=== PATIENT | male | born 1970 | race Caucasian/White ===

== ENCOUNTER 2021-05-19 15:14 | Emergency (ER) | payer MEDICAID, SELFPAY ==
--- NOTE | ~2021-05-19 | CT_ITS ---
EXAMINATION: CT CHEST WITHOUT CONTRAST CLINICAL INFORMATION: Indication: Trauma with super supraclavicular bulging COMPARISON: None TECHNIQUE: Multidetector volumetric CT imaging of the chest was done. Axial MIP volume rendering provided. Sagittal and coronal reformatted images were obtained. This CT examination was performed using dose optimization techniques as appropriate, variously including the following: *Automated exposure control *Adjustment of mA and/or kV according to patient size (this includes techniques or standardized protocols for targeted exams where dose is matched to indication/reason for exam; i.e. extremities or head) *Use of iterative reconstruction technique DLP: 349 mGy-cm FINDINGS: The thoracic inlet is within normal limits. Note is made of a retroesophageal right clavian artery There is mildly prominent mediastinal adenopathy. No bulky adenopathy. Largest node appears to measure 8 mm short axis in the AP window. Partially visualized upper abdominal structures are grossly within normal limits. Imaging the lung maria. Right lung; 3 mm nodule on image 22. No pneumothorax or effusion. 3 mm pleural-based nodule on image 51 at the right base. Another small 3 mm nodule on image 52 adjacent to the hemidiaphragm. 3 mm nodule on image 43. Left lung; No evidence of pneumothorax or effusion. No significant rate. Some likely chronic change occurring in the lingula.. Underlying nodule cannot be excluded. Area measures 9 mm. Minimal groundglass change left midlung posterior may be mild infiltrate. Measures 3.7 x 1.3 cm. Attention to follow-up. This could represent a focal infiltrate but follow-up would be recommended to continue assessment Review of the bone windows demonstrates a step-off involving the anterior third rib. This could be an old fracture but an acute fracture cannot be excluded. This is on the left. There is no convincing evidence for a soft tissue hematoma. Muscular structures appear symmetrical in the pectoralis region CT/CT chest wo con IMPRESSION: No evidence for a significant hematoma here. There is a step-off involving the anterior third rib on the left which could represent an acute fracture versus chronic injury. Point palpation recommended. In the underlying lung there are some prominent mediastinal nodes and some scattered areas of lung nodularity and groundglass change which are described above. I'm recommending a low-dose noncontrast study in 3 months for continued evaluation
--- NOTE | ~2021-05-19 | CT_ITS ---
EXAMINATION: CT SOFT TISSUE NECK WITHOUT CONTRAST CLINICAL INFORMATION: Fall. Supraclavicular bulging. COMPARISON: CT chest from 05/19/2021. TECHNIQUE: Helical imaging was performed in the axial plane with generation of coronal and sagittal reformatted images. This CT examination was performed using dose optimization techniques as appropriate, variously including the following: *Automated exposure control *Adjustment of mA and/or kV according to patient size (this includes techniques or standardized protocols for targeted exams where dose is matched to indication/reason for exam; i.e. extremities or head) *Use of iterative reconstruction technique DLP: 1007 mGy-cm FINDINGS: No significant cutaneous thickening or subcutaneous inflammation. No discrete fluid collection within the deep tissues of the neck. The premaxillary, retromaxillary, pterygopalatine fossa, orbital apical, parapharyngeal, and prelaryngeal adipose tissue is maintained. Normal appearance of the parotid, submandibular, and thyroid glands. Scattered subcentimeter lymph nodes bilaterally, none of which are pathologically enlarged. No demonstrated focal lesions within the intrinsic tissues of the tongue or floor of mouth. Normal mucosal contours of the pharynx and larynx. Normal appearance of the hyoid bone, thyroid cartilage, or cartilaginous trachea. The airways remains widely patent. No radiopaque foreign bodies. The aortic arch is of normal contour and caliber. Aberrant right subclavian artery coursing posterior to the esophagus. The atlantooccipital and atlantoaxial articulations remain well aligned. There is anatomic alignment of the vertebral bodies and posterior elements. No evidence of acute fracture or subluxation of the cervical spine. The vertebral body heights are maintained. Mild degenerative disc disease from C4-T1. There is no prevertebral soft tissue swelling. The visualized portion of the skull base is without significant abnormalities. Mild mucosal thickening of the paranasal sinuses. Mild rightward nasal septal deviation. The mastoid air cells and middle ear cavities are clear. Mild periapical lucencies associated with the maxillary molars. CT Upper Chest: The visualized lung apices and upper mediastinum are within normal limits. CT/CT soft tissue neck wo con IMPRESSION: No demonstrated focal lesion, collection, or lymphadenopathy within the cervical soft tissues. No demonstrated acute fracture or traumatic subluxation of the cervical spine.
--- NOTE | ~2021-05-19 | XR_ITS ---
EXAMINATION: LEFT SHOULDER AND LEFT CLAVICLE CLINICAL INFORMATION: Injury COMPARISON: None TECHNIQUE: Two-view left clavicle and 4 view left shoulder FINDINGS: There is no evidence of acute fracture of the left clavicle. The acromioclavicular joint appears unremarkable. There is minimal fat stranding seen superior to the acromioclavicular joint without widening of the coracoclavicular space. There is no evidence of acute fracture or dislocation of the left shoulder. No calcific tendinitis identified. Glenohumeral joint unremarkable. XR/XR clavicle LT IMPRESSION: No significant bony abnormality of the left clavicle or shoulder.
--- NOTE | ~2021-05-19 | XR_ITS ---
EXAMINATION: LEFT SHOULDER AND LEFT CLAVICLE CLINICAL INFORMATION: Injury COMPARISON: None TECHNIQUE: Two-view left clavicle and 4 view left shoulder FINDINGS: There is no evidence of acute fracture of the left clavicle. The acromioclavicular joint appears unremarkable. There is minimal fat stranding seen superior to the acromioclavicular joint without widening of the coracoclavicular space. There is no evidence of acute fracture or dislocation of the left shoulder. No calcific tendinitis identified. Glenohumeral joint unremarkable. XR/XR shoulder LT min 2V IMPRESSION: No significant bony abnormality of the left clavicle or shoulder.
[2021-05-19 15:46] VITALS: BP 153/91; PULSE 69; RESP 18; TEMP 36.5; O2SAT 98; BMI 32.3
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
[2021-05-19 17:52] VITALS: BP 126/83; PULSE 60; RESP 17; TEMP 36.4; O2SAT 97
--- NOTE | 2021-05-19 20:43 | PC.NURSE ---
Pt. chavez from ED. MD went to check on patient and patient unable to be found. Bathrooms checked and patient has not returned to bed.
== END 2021-05-19 20:48 | disposition left against medical advice (07) ==
PROVIDERS: Emergency Provider Emergency Medicine
DX: S29.9XXA Unspecified injury of thorax, initial encounter (principal); M25.512 Pain in left shoulder; V18.0XXA Pedal cycle driver injured in noncollision transport accident in nontraffic accident, initial encounter; Y93.55 Activity, bike riding; Y92.9 Unspecified place or not applicable; Y99.9 Unspecified external cause status
CPT/HCPCS: 70490; 71250; 73000; 73030; 99284

== ENCOUNTER 2021-10-23 20:37 | Emergency (ER) | payer MEDICAID, SELFPAY ==
--- NOTE | ~2021-10-23 | XR_ITS ---
EXAMINATION: XR HAND, LEFT CLINICAL INFORMATION: Left hand injury. COMPARISON: None TECHNIQUE: PA, lateral, and oblique views of the left hand. FINDINGS: Soft tissue injury is evident at the dorsomedial aspect of the hand in the region of the fifth MCP joints. No acute osseous findings. Bone mineralization is normal. No radiodense foreign bodies. Joint spaces are normal. XR/XR hand LT 2V IMPRESSION: Soft tissue injury at the dorsomedial aspect of the hand. No fractures.
[2021-10-23 20:45] VITALS: BP 143/84; PULSE 77; RESP 18; TEMP 36.8; O2SAT 96; BMI 31.5
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
[2021-10-23] MEDS: Diphth,Pertus(ACell),Tet Adult 0.5 ML SYRINGE IM (23:49)
== END 2021-10-24 00:40 | disposition home or self-care (01) ==
PROVIDERS: Emergency Provider Internal Medicine
DX: S61.412A Laceration without foreign body of left hand, initial encounter (principal); S60.512A Abrasion of left hand, initial encounter; W25.XXXA Contact with sharp glass, initial encounter; Y93.9 Activity, unspecified; Y92.009 Unspecified place in unspecified non-institutional (private) residence as the place of occurrence of the external cause; Y99.9 Unspecified external cause status
CPT/HCPCS: 12002; 73120; 90471; 90715; 99284

== ENCOUNTER 2022-09-21 11:30 | Outpatient (REF) | payer MEDICAID, SELFPAY ==
--- NOTE | ~2022-09-21 | US_ITS ---
EXAMINATION: US ABDOMEN COMPLETE CLINICAL INFORMATION: Elevated liver enzymes. COMPARISON: None available. TECHNIQUE: Real-time imaging of the abdominal viscera. FINDINGS: PANCREAS: The head and body the pancreas are normal. The tail visualized due to bowel gas. ABDOMINAL AORTA: The distal abdominal aorta are not well visualized due to bowel gas. The proximal aorta is normal in caliber. INFERIOR VENA CAVA: Visualized portions are normal. LIVER: Echogenic liver. The liver is large. The liver contour is normal. No focal hepatic lesion. There is no intrahepatic biliary duct dilatation seen. GALLBLADDER: Gallbladder is normal in size. The gallbladder wall is thickened measuring up to 8 mm. No gallstones. COMMON BILE DUCT: Normal in caliber measuring 0.6 cm in diameter. RIGHT KIDNEY: Small 3 mm stone in the midpole. No hydronephrosis or focal parenchymal lesions. The kidney measures 10.9 cm in maximum dimension. LEFT KIDNEY: Normal. No hydronephrosis. No renal calculi or focal parenchymal lesions. The kidney measures 10.2 cm in maximum dimension. SPLEEN: Normal. The spleen measures 11.6 cm in maximum dimension. FREE FLUID: None. US/US abdomen complete IMPRESSION: Enlarged echogenic liver. Differential would include fatty infiltration and liver disease. Thickened gallbladder wall. Differential would include cholangitis, low albumin, gallbladder wall changes related to liver disease, and acalculus cholecystitis. Clinical correlation recommended. Small right renal stone. Limited visualization of the pancreas and aorta.
== END 2022-09-21 11:31 | disposition home or self-care (01) ==
LOC: HO.US 11:30
PROVIDERS: PCP Nurse Practitioner Primary Care; Visit Provider Family Medicine
DX: R74.8 Abnormal levels of other serum enzymes (principal)
CPT/HCPCS: 76700

== ENCOUNTER 2023-01-17 22:49 | Emergency (ER) | payer MEDICAID, SELFPAY ==
[2023-01-17 23:00] VITALS: BP 111/74; BP 145/82; PULSE 74; PULSE 80; RESP 18; TEMP 36.7; O2SAT 94; O2SAT 95; BMI 28.3
--- NOTE | 2023-01-18 00:01 | ED.GENADULT ---
HPI - General Adult General Chief complaint: Allergic Reaction Stated complaint: bee sting 4days ago Time Seen by Provider: 01/17/23 23:51 Source: patient Mode of arrival: ambulatory Limitations: no limitations History of Present Illness HPI narrative: 52-year-old male presents with left arm swelling. Patient noted bee sting approximately 5-6 days ago. Since then he has had progressive swelling and pain and discomfort to the left upper extremity. Patient describes symptoms as severe. There is no clear relieving or exacerbating features. Prior treatment included oral steroids with no improvement. Patient denies any difficulty breathing, throat or tongue swelling, difficulty swallowing. Related Data Previous Rx's Medication Instructions Recorded naproxen 500 mg tablet (Naprosyn) 500 mg PO BID #14 tabs 01/17/23 sulfamethoxazole 800 1 tab PO BID #14 tabs 01/17/23 mg-trimethoprim 160 mg tablet (Bactrim DS) Allergies Allergy/AdvReac Type Severity Reaction Status Date / Time bee pollen [bee stings] Allergy Anaphylaxis Verified 01/17/23 23:07 Review of Systems Review of Systems: CONSTITUTIONAL: Denies weight loss, fever and chills. HEENT: Denies changes in vision and hearing. RESPIRATORY: Denies SOB and cough. CV: Denies palpitations no CP. GI: Denies abdominal pain, nausea, vomiting and diarrhea. : Denies dysuria and urinary frequency. MSK: Denies myalgia and joint pain. SKIN: Denies rash and pruritus. NEUROLOGICAL: Denies headache and syncope. PSYCHIATRIC: Denies recent changes in mood. Denies anxiety and depression. All other ROS are negative unless in HPI PENDING SALE TO [facility] Social History Social History Alcohol intake: unknown Patient Tobacco Use Status: Tobacco use Unknown Advance Directives: No Advance Directives Information Provided: Yes Physical Exam ED Vital Signs: Vital Signs - 24 hr 01/17/23 23:00 Temperature 98.0 F Pulse Rate 80 Respiratory Rate 18 Blood Pressure 111/74 Pulse Oximetry 94 Oxygen Delivery Method Room Air BMI result Body Mass Index 28.3 GEN: Well developed, no acute distress, alert, oriented HEENT: Normocephalic, atraumatic, normal external ears, nose appears normal, no oropharyngeal edema or exudates Eyes: Normal to appearance Neck: Supple, no lymphadenopathy Respiratory: Talks in complete sentences, no respiratory distress, clear to auscultation bilaterally Cardiovascular: Regular rate and rhythm, no murmurs rubs or gallops Abdomen: Soft, nontender, nondistended, no guarding, no rebound Back: No CVA tenderness Extremities: No clubbing cyanosis or edema Neurologic: No focal neurologic deficits, cranial nerves 2-12 intact, strength is 5/5 bilaterally Skin: No rash or erythematous changes to volar aspect of forearm, possible stinger in place in the distal forearm Medical Decision Making Medical Decision Making MDM Narrative: 52-year-old male presents with swelling and pain to the left forearm after bee sting several days ago. He is currently on steroids but despite this, he is having progressive swelling. He is neurovascular intact. I removed the stinger during the physical examination. Differential diagnosis most likely clues inflammatory changes due to bee sting and less likely cellulitis. However, given the duration of symptoms and progression, we will go ahead and start oral antibiotics. Patient to continue steroids. There are no systemic symptoms that warrant other intervention at this time Differential Diagnosis Differential Diagnoses: The differential diagnosis associated with the presentation includes (See above) Prescription Management I considered prescription management with: Antibiotic Discharge Plan Discharge Clinical Impression: Bee sting, Cellulitis Instructions: Cellulitis (ED), Insect Bite or Sting (ED) Prescriptions: New sulfamethoxazole-trimethoprim [Bactrim DS] 800-160 mg tablet 1 tab PO BID Qty: 14 0RF naproxen [Naprosyn] 500 mg tablet 500 mg PO BID Qty: 14 0RF Referrals: Tatyana Cuevas, [employer] [Primary Care Provider] - 3 days
[2023-01-18] MEDS: Ibuprofen 600 MG TABLET PO (01:20)
[2023-01-18] MEDS: Sulfamethox/Trimeth 800/160 TABLET 1 TAB PO (01:21)
== END 2023-01-18 01:25 | disposition home or self-care (01) ==
PROVIDERS: Emergency Provider Emergency Medicine; PCP Nurse Practitioner Primary Care
DX: T63.441A Toxic effect of venom of bees, accidental (unintentional), initial encounter (principal); L03.114 Cellulitis of left upper limb; M79.602 Pain in left arm; Y92.9 Unspecified place or not applicable
CPT/HCPCS: 99283

== ENCOUNTER 2024-08-08 07:37 | Emergency (ER) | payer SELFPAY ==
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
--- NOTE | ~2024-08-08 | XR_ITS ---
EXAMINATION: XR CHEST CLINICAL INFORMATION: cp COMPARISON: Correlated to CT chest dated May 19, 2021. TECHNIQUE: 2 views of the chest were obtained. FINDINGS: No consolidation, pleural effusion or pneumothorax. Cardiomediastinal silhouette demonstrates a mild prominent aortic arch. Osseous structures are intact. XR/XR chest 2V IMPRESSION: No acute airspace disease. The previously described pulmonary nodules are not detected by x-ray. Electronically signed by: Saul Velez MD 08/08/2024 08:29 AM [facility]
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
[2024-08-08 07:43] VITALS: BP 210/109; PULSE 80; RESP 18; TEMP 36.6; O2SAT 97; BMI 29.8
[2024-08-08 08:18] LABS: Basophils Absolute Auto 0.1 X10*3/uL (0.0-0.2); Basophils Percent Auto 1.4 % (0-2); Eosinophils Absolute Auto 0.4 X10*3/uL (0.0-0.4); Eosinophils Percent Auto 6.7 % (0-4); Hematocrit 42.7 % (42.0-52.0); Imm Gran Abs Auto 0.04 X10*3/uL (0.00-0.03); Imm Gran Pct Auto 0.7 % (0.0-0.4); Lymphocytes Absolute Auto 1.6 X10*3/uL (1.2-4.9); Lymphocytes Percent Auto 28.6 % (20-40); MANUAL DIFF FLAG NO; Mean Corpuscular HGB Conc 37.5 g/dl (31.0-36.0); Mean Corpuscular Hemoglobin 34.3 pg (27.0-33.0); Mean Corpuscular Volume 91.6 fL (80.0-98.0); Mean Platelet Volume 10.1 fL (9.4-12.4); Monocytes Absolute Auto 0.6 X10*3/uL (0.1-1.2); Neutrophils Percent Auto 52.6 % (45-73); Platelet Count 171 X10*3/uL (160-400); Red Blood Count 4.66 X10*6/uL (4.60-5.80); Red Cell Distribution Width 11.8 % (11.0-16.0); White Blood Count 5.7 X10*3/uL (4.8-10.8)
[2024-08-08 08:35] LABS: Alanine Aminotransferase 181 U/L (0-40); Albumin Level 4.6 g/dL (3.5-5.0); Alkaline Phosphatase 100 U/L (39-117); Anion Gap 17 (12-20); Aspartate Amino Transferase 129 U/L (5-37); Blood Urea Nitrogen 15 mg/dL (9-16); Calcium 9.8 mg/dL (8.4-10.2); Carbon Dioxide 23 mmol/L (22-29); Chloride 104 mmol/L (96-108); Creatinine Clr Calc Pharmacy 91.1; Estimated Glomerular Filt Rate > 60; Glucose Random 132 mg/dL (60-115); Potassium 4.6 mmol/L (3.3-5.1); Sodium 139 mmol/L (135-145); Total Protein 9.5 g/dL (6.5-8.0)
[2024-08-08 08:41] LABS: Troponin-I High Sensitivity < 2.7 ng/L (<3.5-35.0)
[2024-08-08 10:15] VITALS: BP 185/108
[2024-08-08] MEDS: cloNIDine HCL 0.2 MG TABLET PO (10:15)
--- NOTE | 2024-08-08 10:20 | PC.NURSE ---
took over pt care at 9am, pt a&ox3, monitoring tech just applied, nsr 70s, pt is very hypertensive- provider aware and ordered medication for pt, iv inserted, labs previously drawn, pt c/o 08/12 pain, call liu within reach, plan of care ongoing
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
--- OUTSIDE RECORDS SUMMARY | 2024-08-08 11:11 | XMS_ITS | Clinical Summary ---
Author Organization [facility] [employer] Address [address] [place] [address] [address] [place] [address] Care Team Providers Care Concrete Plant Laborer Name Role Phone Kay Whelan DAHLIA Primary Care Provider [phone] Allergies Active Allergy Reactions Criticality Noted Date Comments Honey Bee Venom 01/16/2023 Medications lisinopril 20 MG tablet TAKE 1 TABLET BY MOUTH EVERY DAY 90 tablet 1 11/02/2022 Active verapamil ER (Verelan) 360 MG 24 hr capsule TAKE 1 CAPSULE BY MOUTH EVERY DAY IN THE EVENING 90 capsule 1 11/02/2022 Active senna (Senokot) 8.6 MG tablet TAKE 2 TABLETS BY MOUTH EVERY DAY 180 tablet 1 11/02/2022 Active cetirizine (ZyrTEC) 10 MG tabletIndicatio ns:Bee sting reaction, accidental or unintentional, initial encounter Take 1 tablet (10 mg) by mouth in the morning. 90 tablet 1 01/16/2023 Active EPINEPHrine (Epipen) 0.3 MG/0.3ML injection syringeIndicati ons:Bee sting reaction, accidental or unintentional, initial encounter Inject 0.3 mL (0.3 mg) as directed 1 (one) time for 1 dose. use as directed for allergic reaction and then call 911 2 each 01/16/2023 Active ibuprofen 600 MG tabletIndicatio ns:Bee sting reaction, accidental or unintentional, initial encounter Take 1 tablet (600 mg) by mouth 3 times daily. 90 tablet 1 01/16/2023 Active Active Problems Problem Noted Date Diagnosed Date Hypertensive disorder 01/16/2023 Encounters Date Type Department Care Team Description 08/08/2024 Orders Only GENERIC EXTERNAL DATA DEPARTMENT Provider, Generic External Data from Last 3 Months Social History Tobacco Use Types Packs/Day Years Used Date Smoking Tobacco: Never Smokeless Tobacco: Never Tobacco Cessation:Counseling Given: Not Answered Alcohol Use Standard Drinks/Week Comments Yes 0 (1 standard drink = 0.6 oz pur e alcohol) Housing Stability Answer Date Recorded What is your housing situation today? I have tracy gupta 03/22/[address] you li ve. Do you have problems with any of the following? None of the above 03/22/2023 Food Insecurity Answer Date Recorded Within the past 12 months, y ou worried that your food would run out before you got money to buy more: Never True 03/22/2023 Within the past 12 months,th e food you bought just didn't last and you didn't have enough money to get more: Never True Transportation Answer Date Recorded In the past 12 months, has l ack of transportation kept you from medical appts, meetings, work or from getting things needed for daily living? No 03/22/2023 Utilities Answer Date Recorded In the past 12 months, has t he electric, gas, oil or water company threatened to shut off services in your home? No 03/22/2023 Depression Answer Date Recorded Patient Health Questionnaire-2 Score 2 08/26/2022 Sex and Gender Information Value Date Recorded Sex Assigned at Male 04/04/2022 10:27 AM EDT Legal Sex Male 10:27 AM EDT Gender Identity Male 04/04/2022 10:27 AM EDT Sexual Orientation Choose not to disclose 2021 10:27 AM EDT Last Filed Vital Signs Vital Sign Reading Time Taken Comments Blood Pressure 188/128 01/16/2023 2:43 PM EDT Pulse 80 01/16/2023 2:43 PM EDT Temperature 37.2 ??C (98.9 ??F) 01/16/2023 2:43 PM ED T Respiratory Rate 18 01/16/2023 2:43 PM EDT Oxygen Saturation 97% 01/16/2023 2:43 PM EDT Inhaled Oxygen Concentration - - Weight 89.7 kg (197 lb 12.8 oz) 01/16/2023 2:43 PM EDT Height 177.8 cm (5' 10 ) 01/16/2023 2:43 PM EDT Body Mass Index 28.38 01/16/2023 2:43 PM EDT Plan of Treatment Health Maintenance Due Date Last Done Comments CT Colonography 1971 Colonoscopy 1971 Colorectal Cancer Screening 1971 FIT DNA/Cologuard 1971 FIT 1971 FOBT 1971 Lipid Panel 1971 Sigmoidoscopy 1971 Alcohol/Substance Use Screening 1983 Hepatitis B Vaccines (3 of 3 - 19+ 3-dose series) 05/24/2017 12/22/2016, 11/22/2016 Pneumococcal Vaccine: 50+ Years (1 of 1 - PCV) 2021 Zoster Vaccines (1 of 2) 2021 Depression Screening 08/27/2023 08/26/2022, 08/26/2022 SDOH Screening 08/27/2023 08/26/2022 Tobacco Screening 01/17/2024 01/16/2023 COVID-19 Vaccine (3 - 2023-2 5 season) 2024 06/11/2021, 02/17/2021 Influenza Vaccine (#1) 2024 DTaP/Tdap/Td Vaccines (3 - T d or Tdap) 10/24/2031 10/23/2021, 11/17/2016 RSV Patients and Patients Aged 60 years or older (1 - 1-dose 75+ series) 2046 HIV Screening Completed 08/26/2022 Hepatitis C Screening Completed 08/26/2022 HIB Vaccines Aged Out No longer eligi ble based on patient's age to complete this topic HPV Vaccines Aged Out No longer eligi ble based on patient's age to complete this topic Hepatitis A Vaccines Aged Out No long er eligible based on patient's age to complete this topic IPV Vaccines Aged Out No longer eligi ble based on patient's age to complete this topic Meningococcal Vaccine Aged Out No natasha amy eligible based on patient's age to complete this topic RSV under 20 months Aged Out No longe r eligible based on patient's age to complete this topic Rotavirus Vaccines Aged Out No longer eligible based on patient's age to complete this topic Procedures Procedure Name Priority Date/Time Associated Diagnosis Comments HIGH SENSITIVITY TROPONIN I Routine 08/08/2024 8:05 AM EST COMPREHENSIVE METABOLIC PANEL Routine 08/08/2024 8:05 AM EST CBC WITH AUTO DIFFERENTIAL Routine 08/08/2024 8:05 AM EST XR CHEST 2 VIEWS Routine 08/08/2024 7:55 AM EST HEPATITIS C AB W/REFL TO HCV RNA, QN, PCR Routine 08/26/2022 3:22 PM EDT Alcohol use disorder, severe, dependence (CMS/HCC) HIV 1/2 ANTIGEN/ANTIBODY, FOURTH GENERATION W/RFL Routine 08/26/2022 3:22 PM EDT Alcohol use disorder, severe, dependence (CMS/HCC) from Last 3 Months or Most Recently Relevant to Health Maintenance Results * High Sensitivity Troponin I (08/08/2024 8:05 AM EST) [facility] [address] TROPONIN I HIGH SENSITIVITY <2.7 <3.5 - 35.0 ng/L [facility] Comment:The Larson high sens itivity Troponin-I results should beused in conjunction with other diagnostic information suchas ECG, clinical observations and information, and patientsymptoms to aid in the diagnosis of MD. 08/08/2024 8:05 AM EST 08/08/2024 8:16 AM EST us Generic External Data Provider LAB BLOOD ORDERAB LES Final Result [facility] [address] [place] [phone] * (ABNORMAL) CBC auto differential (08/08/2024 8:05 AM EST) [facility] [address] White Blood Count 5.7 4.8 - 10.8 X10*3/uL [facility] Red Blood Count 4.66 4.60 - 5.80 X10*6/uL [facility] Hemoglobin 16.0 14.0 - 18.0 g/dl [facility] Hematocrit 42.7 42.0 - 52.0 % [facility] Mean Corpuscular Volume 91.6 80.0 - 98.0 fL [facility] Mean Corpuscular Hemoglobin 34.3(H) 27.0 - 33.0 pg [facility] Mean Corpuscular HGB Conc 37.5(H) 31.0 - 36.0 g/dl [facility] Red Cell Distribution Width 11.8 11.0 - 16.0 % [facility] Platelet Count 171 160 - 400 X10*3/uL [facility] Mean Platelet Volume 10.1 9.4 - 12.4 fL [facility] Neutrophils Percent Auto 52.6 45 - 73 % [facility] Imm Gran Pct Auto 0.7(H) 0.0 - 0.4 % [facility] Lymphocytes Percent Auto 28.6 20 - 40 % [facility] Monocytes Percent Auto 10.0 2 - 11 % [facility] Eosinophils Percent Auto 6.7(H) 0 - 4 % [facility] Basophils Percent Auto 1.4 0 - 2 % [facility] NRBC Pct Auto 0.0 0.0 - 0.2 /100WBC [facility] Neutrophils Absolute Auto 3.0 2.0 - 8.3 x10*3/uL [facility] Imm Gran Abs Auto 0.04(H) 0.00 - 0.03 X10*3/uL [facility] Lymphocytes Absolute Auto 1.6 1.2 - 4.9 X10*3/uL [facility] Monocytes Absolute Auto 0.6 0.1 - 1.2 X10*3/uL [facility] Eosinophils Absolute Auto 0.4 0.0 - 0.4 X10*3/uL [facility] Basophils Absolute Auto 0.1 0.0 - 0.2 X10*3/uL [facility] NRBC Abs Auto 0.000 0.0 - 0.012 X10*3/uL [facility] 08/08/2024 8:05 AM EST 08/08/2024 8:16 AM EST us Generic External Data Provider LAB BLOOD ORDERAB LES Final Result [facility] [address] [place], [place] [phone] * (ABNORMAL) Comprehensive Metabolic Panel (08/08/2024 8:05 AM EST) Sodium 139 135 - 145 mmol/L [facility] Potassium 4.6 3.3 - 5.1 mmol/L [facility] Comment:Slight Hemolysis.Int erpret result with caution. Chloride 104 96 - 108 mmol/L [facility] Carbon Dioxide 23 22 - 29 mmol/L [facility] Anion Gap 17 12 - 20 [facility] Urea Nitrogen (BUN) 15 9 - 16 mg/dL [facility] Creatinine, Serum 1.08 0.5 - 1.4 mg/dL [facility] Creatinine Clr Calc Pharmacy 91.1 [facility] Comment:eGFR (calculated fro m the MDRD study equation) and eCrCl(calculated from the Cockcroft-Gault equation) are based ondifferent parameters and may not yield comparable results.If eCrCl result is absurd, please check patient'sheight/weight. Estimated Glomerular Filt Rate >60 [facility] Comment:Chronic Kidney Disea se: Estimated GFR < 60 mL/min/1.23l2Apvvpz Kidney Disease: Estimated GFR < 15 mL/min/1.73m2 Glucose 132(H) 60 - 115 mg/dL [facility] Calcium 9.8 8.4 - 10.2 mg/dL [facility] Bilirubin, Total 1.0 0.0 - 1.0 mg/dL [facility] Aspartate Amino Transferase 129(H) 5 - 37 U/L [facility] Comment:Slight Hemolysis.Int erpret result with caution. Alanine Aminotransferase 181(H) 0 - 40 U/L [facility] Total Protein 9.5(H) 6.5 - 8.0 g/dL [facility] Albumin Level 4.6 3.5 - 5.0 g/dL [facility] Alkaline Phosphatase 100 39 - 117 U/L [facility] 08/08/2024 8:05 AM EST 08/08/2024 8:16 AM EST us Generic External Data Provider LAB BLOOD ORDERAB LES Final Result [facility] [address] [place] [address] [phone] * XR Chest 2 Views (08/08/2024 7:55 AM EST) Anatomical Region Laterality Modality Chest Radiographic Orin ging 08/08/2024 7:55 AM EST Narrative 08/08/2024 8:31 AM EST ? [facility] ?[address] ?[place] [address] ?XRay Report ? Signed ? Patient: Kathya,Mitchell ?MR#: [id number] ? : 1970 ?Acct:[id number] ? Age/Sex: 54 / M ?ADM Date: 08/08/24 ? Loc: HO.ED ? Attending Dr: ? Ordering Physician: Generic ED Physician ?? Date of Service: 08/08/24 ?? Procedure(s): XR chest 2V ?? Accession Number(s): [id number] ? cc: Generic ED Physician; KAY WHELAN NP ? EXAMINATION: ?? XR CHEST ? CLINICAL INFORMATION: ?? cp ? COMPARISON: ?? Correlated to CT chest dated May 19, 2021. ? TECHNIQUE: ?? 2 views of the chest were obtained. ? FINDINGS: ?? No consolidation, pleural effusion or pneumothorax. Cardiomediastinal ?? silhouette demonstrates a mild prominent aortic arch. ?? Osseous structures are intact. ? XR/XR chest 2V ?? IMPRESSION: ?? No acute airspace disease. The previously described pulmonary nodules ?? are not detected by x-ray. ? Electronically signed by: ??Saul Velez MD ??08/08/2024 08:29 AM ?? EST RP ? Dictated By: ?Saul Kothari MD ? Signed By: ?<Electronically signed by Saul Lomax MD in OV> ? 08/08/24 0829 ? DD/ 0755 ? TD/TT: 08/08/24 0759 ? Staying Machine Operator: ? Procedure Note Donotuseinterpreter, Image - 08/08/[address] [address] XRay Report Signed Patient: Louise Rasheed#: [id number] : 1970Acct:[id number] Age/Sex: 54 / MADM Date: 08/08/24 Loc: HO.ED Attending Dr: Ordering Physician: Generic ED Physician Date of Service: 08/08/24 Procedure(s): XR chest 2V Accession Number(s): [id number] cc: Generic ED Physician; KAY WHELAN NP EXAMINATION: XR CHEST CLINICAL INFORMATION: cp COMPARISON: Correlated to CT chest dated May 19, 2021. TECHNIQUE: 2 views of the chest were obtained. FINDINGS: No consolidation, pleural effusion or pneumothorax. Cardiomediastinal silhouette demonstrates a mild prominent aortic arch. Osseous structures are intact. XR/XR chest 2V IMPRESSION: No acute airspace disease. The previously described pulmonary nodules are not detected by x-ray. Electronically signed by: Saul Velez MD 08/08/2024 08:29 AM [facility] Dictated By: Saul Kothari MD Signed By: <Electronically signed by Saul Lomax MDin OV> 08/08/24 0829 DD/ 0755 TD/TT: 08/08/24 0759 Staying Machine Operator: [facility] External Provider IMG XR PROCEDURES Final Result * Hepatitis C Antibody with Reflex to HCV, RNA, Quantitative, Real-Time PCR (08/26/2022 3:22 PM EDT) Hepatitis C Antibody NON-REACT MI NON-REACT MI [facility] [place] [employer] Index 0.05 <1.00 [facility] Comment: HCV antibody was non-reactive. There is no laboratory evidence of HCV infection. In most cases, no further action is required. However, if recent HCV exposure is suspected, a test for HCV RNA (test code 82607) is suggested. For additional information please refer to http://[employer]/faq/EMT62a5 (This link is being provided for informational/ educational purposes only.) Blood Venous blood specimen / Unknown 08/26/2022 3:22 PM EDT 08/26/2022 3:22 PM EDT Narrative [facility] - 09/01/2022 9:59 PM EDT FASTING:UNKNOWN FASTING: UNKNOWN us Cl Peguero MD LAB BLOOD ORDERABLES Final Resul t [facility] [address], [place] [address] [facility] [place] [facility] [address] [place] [address] * HIV-1/2 Antigen and Antibodies, Fourth Generation, with Reflexes (08/26/2022 3:22 PM EDT) [facility] [address] HIV Antigen/Antibody, 4th Generation NON-REAC TIVE NON-REAC TIVE [facility] [place] [facility] Comment: HIV-1 antigen and HIV-1/HIV-2 antibodies were not detected. There is no laboratory evidence of HIV infection. PLEASE NOTE: This information has been disclosed to you from records whose confidentiality may be protected by state law. ??If your state requires such protection, then the state law prohibits you from making any further disclosure of the information without the specific written consent of the person to whom it pertains, or as otherwise permitted by law. A general authorization for the release of medical or other information is NOT sufficient for this purpose. ?? For additional information please refer to http://[employer]/faq/AXY199 (This link is being provided for informational/ educational purposes only.) The performance of this assay has not been clinically validated in patients less than 2 years old. Blood Venous blood specimen / Unknown 08/26/2022 3:22 PM EDT 08/26/2022 3:22 PM EDT Narrative [facility] - 09/01/2022 9:59 PM EDT FASTING:UNKNOWN FASTING: UNKNOWN us Cl Peguero MD LAB BLOOD ORDERABLES Final Resul t [facility] [address] [facility], [facility], [place] [address] [facility] [place] [facility] [address] [place] [address] from Last 3 Months or Most Recently Relevant to Health Maintenance Insurance [employer] Care Teams Concrete Plant Laborer Relationship Specialty Start Date End Date Kay Whelan ANP [address] [place] [address] PCP - General Family Medicine 05/19/21
--- OUTSIDE RECORDS SUMMARY | 2024-08-08 11:11 | XMS_ITS | Encounter Summary ---
Author Organization [facility] Address [address] [place] [address] Care Team Providers Care Door Builder Name Role Phone Tatyana Cuevas Primary Care Provider Reason for Visit * Reason Onset Date Comments Appt Status 08/17/2022 Encounter Details Date Type Department Care Team ([facility] st Contact Info) Description 08/17/2022 Telephone [facility] [address] [place] [address] Tatyana Cuevas ANP [address] [place] [address] Appt Status Social History Tobacco Use Types Packs/Day Years Used Date Smoking Tobacco: Never Assessed Sex and Gender Information Value Date Recorded Sex Assigned at Male 04/04/2022 10:27 AM EDT Legal Sex Male 10:27 AM EDT Gender Identity Male 04/04/2022 10:27 AM EDT Sexual Orientation Choose not to disclose 2021 10:27 AM EDT documented as of this encounter Miscellaneous Notes * Telephone Encounter - Osvaldo Valencia - 08/17/2022 11:12 AM EDT Tc from pt requesting a status regarding an appt for some shots to help pt stop drinking. Pt claimshe never receive this appt and was talked over with provider. Please contact pt at [phone] documented in this encounter Plan of Treatment Not on file documented as of this encounter Visit Diagnoses Not on filedocumented in this encounter Care Teams Door Builder Relationship Specialty Start Date End Date Tatyana Cuevas ANP [address] [place] [address] PCP - General Family Medicine 05/19/21 documented as of this encounter
--- OUTSIDE RECORDS SUMMARY | 2024-08-08 11:11 | XMS_ITS | Encounter Summary ---
Author Organization [employer] Address [address] [address] [facility] [address] [address] [facility] [address] [place] [address] Care Team Providers Care Floriculturist Name Role Phone Kay Whelan DAHLIA Primary Care Provider [phone] Encounter Details Date Type Department Care Team ([facility] st Contact Info) Description 08/08/2024 Orders Only GENERIC EXTERNAL DATA DEPARTMENT Provider, Generic External Data Social History Tobacco Use Types Packs/Day Years Used Date Smoking Tobacco: Never Smokeless Tobacco: Never Alcohol Use Standard Drinks/Week Comments Yes 0 [...] AM EDT documented as of this encounter Plan of Treatment Not on file documented as of this encounter Procedures Procedure Name Priority Date/Time Associated Diagnosis Comments HIGH SENSITIVITY TROPONIN I Routine 08/08/2024 8:05 AM EST CBC WITH AUTO DIFFERENTIAL Routine 08/08/2024 8:05 AM EST COMPREHENSIVE METABOLIC PANEL Routine 08/08/2024 8:05 AM EST XR CHEST 2 VIEWS Routine 08/08/2024 7:55 AM EST documented in this encounter Results * High Sensitivity Troponin I (08/08/2024 8:05 AM EST) Pathologist [facility] [place] TROPONIN I HIGH SENSITIVITY <2.7 <3.5 - 35.0 ng/L [facility] Comment:The Larson high sens itivity Troponin-I results should beused in conjunction with other diagnostic information suchas ECG, clinical observations and information, and patientsymptoms to aid in the diagnosis of [place]. 08/08/2024 8:05 AM EST 08/08/2024 8:16 AM EST us Generic External Data Provider LAB BLOOD ORDERAB LES Final Result [facility] [address] [place] [address] [phone] * (ABNORMAL) Comprehensive Metabolic Panel (08/08/2024 8:05 AM EST) Pathologist [facility] [place] Sodium 139 135 - 145 mmol/L [facility] Potassium 4.6 3.3 - 5.1 mmol/L [facility] Comment:Slight Hemolysis.Int erpret result with caution. Chloride 104 96 - 108 mmol/L [facility] Carbon Dioxide 23 22 - 29 mmol/L [facility] Anion Gap 17 12 - 20 [facility] Urea Nitrogen (BUN) 15 9 - 16 mg/dL [facility] Creatinine, Serum 1.08 0.5 - 1.4 mg/dL [facility] Creatinine Clr Calc Pharmacy 91.1 [facility] Comment:eGFR (calculated fro m the MDRD study equation) and eCrCl(calculated from the Cockcroft-Gault equation) are based ondifferent parameters and may not yield comparable results.If eCrCl result is absurd, please check patient'sheight/weight. Estimated Glomerular Filt Rate >60 [facility] Comment:Chronic Kidney Disea se: Estimated GFR < 60 mL/min/1.71g7Shatpp Kidney Disease: Estimated GFR < 15 mL/min/1.73m2 Glucose 132(H) 60 - 115 mg/dL [facility] Calcium 9.8 8.4 - 10.2 mg/dL [facility] Bilirubin, Total 1.0 0.0 - 1.0 mg/dL [facility] Aspartate Amino Transferase 129(H) 5 - 37 U/L [facility] Comment:Slight Hemolysis.Int erpret result with caution. Alanine Aminotransferase 181(H) 0 - 40 U/L [facility] Total Protein 9.5(H) 6.5 - 8.0 g/dL [facility] Albumin Level 4.6 3.5 - 5.0 g/dL [facility] Alkaline Phosphatase 100 39 - 117 U/L [facility] 08/08/2024 8:05 AM EST 08/08/2024 8:16 AM EST us Generic External Data Provider LAB BLOOD ORDERAB LES Final Result [facility] [address] [place] [address] [phone] * (ABNORMAL) CBC auto differential (08/08/2024 8:05 AM EST) White Blood Count 5.7 4.8 - 10.8 X10*3/uL [facility] Red Blood Count 4.66 4.60 - 5.80 X10*6/uL [facility] Hemoglobin 16.0 14.0 - 18.0 g/dl [facility] Hematocrit 42.7 42.0 - 52.0 % [facility] Mean Corpuscular Volume 91.6 80.0 - 98.0 fL [facility] Mean Corpuscular Hemoglobin 34.3(H) 27.0 - 33.0 pg [facility] Mean Corpuscular HGB Conc 37.5(H) 31.0 - 36.0 g/dl [facility] Red Cell Distribution Width 11.8 11.0 - 16.0 % [facility] Platelet Count 171 160 - 400 X10*3/uL [facility] Mean Platelet Volume 10.1 9.4 - 12.4 fL [facility] Neutrophils Percent Auto 52.6 45 - 73 % [facility] Imm Gran Pct Auto 0.7(H) 0.0 - 0.4 % [facility] Lymphocytes Percent Auto 28.6 20 - 40 % [facility] Monocytes Percent Auto 10.0 2 - 11 % [facility] Eosinophils Percent Auto 6.7(H) 0 - 4 % [facility] Basophils Percent Auto 1.4 0 - 2 % [facility] NRBC Pct Auto 0.0 0.0 - 0.2 /100WBC [facility] Neutrophils Absolute Auto 3.0 2.0 - 8.3 x10*3/uL [facility] Imm Gran Abs Auto 0.04(H) 0.00 - 0.03 X10*3/uL [facility] Lymphocytes Absolute Auto 1.6 1.2 - 4.9 X10*3/uL [facility] Monocytes Absolute Auto 0.6 0.1 - 1.2 X10*3/uL [facility] Eosinophils Absolute Auto 0.4 0.0 - 0.4 X10*3/uL [facility] Basophils Absolute Auto 0.1 0.0 - 0.2 X10*3/uL [facility] NRBC Abs Auto 0.000 0.0 - 0.012 X10*3/uL [facility] 08/08/2024 8:05 AM EST 08/08/2024 8:16 AM EST us Generic External Data Provider LAB BLOOD ORDERAB LES Final Result [facility] [address] [facility] [place] [phone] * XR Chest 2 Views (08/08/2024 7:55 AM EST) Anatomical Region Laterality Modality Chest Radiographic Orin ging 08/08/2024 7:55 AM EST Narrative 08/08/2024 8:31 AM EST ? [facility] ?[address] ?[place] [address] ?XRay Report ? Signed ? Patient: Kathya,Mitchell ?MR#: [id number] ? : 1970 ?Acct:[id number] ? Age/Sex: 54 / M ?ADM Date: 08/08/24 ? Loc: HO.ED ? Attending Dr: ? Ordering Physician: Generic ED Physician ?? Date of Service: 08/08/24 ?? Procedure(s): XR chest 2V ?? Accession Number(s): [id number] ? cc: Generic ED Physician; KAY WHELAN [...] DD/ 0755 ? TD/TT: 08/08/24 0759 ? Engra[employer]: ? Procedure Note Freida, Image - 08/08/2024 [facility] [address] [place] [address] XRay Report Signed Patient: Louise Rasheed#: [id number] : 1970Acct:[id number] Age/Sex: 54 / MADM Date: 08/08/24 Loc: HO.ED Attending Dr: Ordering Physician: Generic ED Physician Date of Service: 08/08/24 Procedure(s): XR chest 2V Accession Number(s): [id number] cc: Generic ED Physician; KAY WHELAN LITHOGRAPHIC PLATEMAKER EXAMINATION: XR CHEST CLINICAL INFORMATION: cp COMPARISON: [...] by: Saul Velez MD 08/08/2024 08:29 AM EST Dictated By: Saul Kothari MD Signed By: <Electronically signed by Saul Lomax MDin OV> 08/08/24 0829 DD/ 0755 TD/TT: 08/08/24 0759 [employer]: [facility] External Provider IMG XR PROCEDURES Final Result documented in this encounter Visit Diagnoses Not on filedocumented in this encounter Care Teams Floriculturist Relationship Specialty Start Date End Date Kay Whelan ANP [address] [place] [address] PCP - General Family Medicine 05/19/21 documented as of this encounter
--- OUTSIDE RECORDS SUMMARY | 2024-08-08 11:11 | XMS_ITS | Encounter Summary ---
Author Organization [employer] Address [address] [place] [address] Care Team Providers Care Liquefaction Plant Operator Name Role Phone Tatyana Cuevas Primary Care Provider [phone] Encounter Details Date Type Department Care Team ([facility] st Contact Info) Description 11/01/2022 Orders Only [facility] MED [facility] PEDS [address] [place] [address] Renetta Ag LPN Social History Tobacco Use Types Packs/Day Years Used Date Smoking Tobacco: Never Smokeless Tobacco: Never Alcohol Use Standard Drinks/Week Comments Yes 0 (1 standard drink = 0.6 oz pur e alcohol) Depression Answer Date Recorded Patient Health Questionnaire-2 [...] on filedocumented in this encounter Care Teams Liquefaction Plant Operator Relationship Specialty Start Date End Date Tatyana Cuevas ANP [address] [place] [phone] PCP - General Family Medicine 05/19/21 documented as of this encounter
[2024-08-08] MEDS: iohexoL 350 MG/ML 100 ML INFUS..BTL 85 ML IV (11:40)
[2024-08-08 12:15] VITALS: BP 158/101; PULSE 72; RESP 17; O2SAT 96
[2024-08-08 12:51] LABS: Troponin-I High Sensitivity < 2.7 ng/L (<3.5-35.0)
[2024-08-08 13:25] VITALS: BP 172/105; PULSE 68; RESP 17; TEMP 36.8; O2SAT 98
[2024-08-08 14:25] VITALS: BP 172/98; PULSE 73; RESP 18; TEMP 36.8; O2SAT 98
== END 2024-08-08 14:26 | disposition home or self-care (01) ==
PROVIDERS: Physician Assistant; Emergency Provider Emergency Medicine; PCP Nurse Practitioner Primary Care
DX: S13.4XXA Sprain of ligaments of cervical spine, initial encounter (principal); R07.89 Other chest pain; R51.9 Headache, unspecified; M54.2 Cervicalgia; R10.2 Pelvic and perineal pain; V43.52XA Car driver injured in collision with other type car in traffic accident, initial encounter; Y93.9 Activity, unspecified; Y92.410 Unspecified street and highway as the place of occurrence of the external cause; Y99.8 Other external cause status
CPT/HCPCS: 36415; 70450; 71046; 71260; 72125; 74177; 80053; 84484; 85025; 93005; 99284; Q9967

== ENCOUNTER → 2024-08-08 07:55 | Outpatient (BNV) | payer OTHER, SELFPAY | PROVIDERS: PCP Nurse Practitioner Primary Care; Visit Provider Radiology Diagnostic Radiology | DX: K42.9 Umbilical hernia without obstruction or gangrene (principal); R16.0 Hepatomegaly, not elsewhere classified; M43.06 Spondylolysis, lumbar region; R91.1 Solitary pulmonary nodule; M47.812 Spondylosis without myelopathy or radiculopathy, cervical region; R51.9 Headache, unspecified; R07.9 Chest pain, unspecified; V89.2XXA Person injured in unspecified motor-vehicle accident, traffic, initial encounter | CPT/HCPCS: 70450; 71046; 71260; 72125; 74177 ==

== ENCOUNTER → 2024-08-08 08:08 | Outpatient (BNV) | payer OTHER, SELFPAY | PROVIDERS: Emergency Provider Emergency Medicine; PCP Nurse Practitioner Primary Care; Visit Provider Internal Medicine Cardiovascular Disease | DX: R94.31 Abnormal electrocardiogram [ECG] [EKG] (principal); V89.2XXA Person injured in unspecified motor-vehicle accident, traffic, initial encounter | CPT/HCPCS: 93010 ==

== ENCOUNTER 2024-08-22 14:15 | Outpatient (AMB) | payer OTHER, SELFPAY ==
--- NOTE | 2024-08-22 14:17 | A.OFFVIS_ITS ---
Vital Signs 08/22/24 14:27 Height 5 ft 10 in Weight 213 lb BMI 30.6 BP 197/111 H Blood Pressure Location Lt brachial Position Sitting Pulse 82 Intake Visit Reasons: umbilical hernia Intake Note: Patient is seen in office for ER follow up visit, following umbilical hernia. 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 He has had the hernia for many years and previously was scheduled for surgery at [facility] but subsequently did not show up for surgery due to fear. Since this time the hernia has increased in size and is causing mild discomfort. He denies nausea, vomiting, fever or chills. He denies a history of any prior surgery. CT abdomen and pelvis obtained in the emergency department revealed small bowel within the hernia sac. He presents today to discuss repair of this umbilical hernia. [facility] Medical History (Updated 08/22/24 @ 14:40 by Henrique Spence MD) Hypertension Social History Alcohol intake: unknown Patient Tobacco Use Status: Tobacco use Unknown Review of Systems Const All systems reviewed & are unremarkable except as noted in HPI and below Denies chills, Denies fever(s), Denies headache(s), Denies poor appetite and Denies weakness ENT Denies headache(s) Card Denies chest pain, Denies irregular heart rhythm, Denies palpitations and Denies dyspnea Resp Denies cough, Denies excessive phlegm production and Denies dyspnea GI Denies abdominal pain, Denies bloating, Denies change in bowel habits, Denies constipation, Denies heartburn, Denies diarrhea, Denies nausea and Denies vomiting Denies difficulty urinating and Denies urinary frequency Musc Denies back pain, Denies muscle weakness and Denies numbness Skin/Breast Denies changing lesions and Denies unusual bruising Neuro Denies headache(s), Denies numbness, Denies paresthesias and Denies weakness Psych Denies anxiety and Denies depression Endo Denies palpitations Eren/Lymph Denies lymphadenopathy Physical Exam Const General: cooperative and no acute distress Nutritional Appearance: well nourished Orientation/consciousness: patient oriented x3 Limitations: no limitations HEENT Head: Yes normocephalic and Yes atraumatic Ears: hearing grossly normal bilaterally Resp Effort & Inspection: normal respiratory effort, no audible wheezes, no cough and no respiratory distress Cardio Jugular venous distension: no JVD GI Other: He was identified umbilical hernia measuring approximately 3 cm in diameter, reducible with light pressure. Minimal tenderness to palpation. No other abdominal wall hernias appreciated. Abdomen is otherwise soft and nondistended. Inspection: Yes normal to inspection Skin Other: Warm, dry, no rash Neuro General: patient oriented x3 Extrem General: Yes no clubbing, cyanosis or edema Assessment & Plan Assessment & Plan (1) Umbilical hernia without obstruction and without gangrene: Code(s): K42.9 - Umbilical hernia without obstruction or gangrene Category: Medical Plan 54-year-old male patient presenting with a large umbilical hernia which has been increasing in size and causing some mild symptoms. I recommended repair of this umbilical hernia with mesh and after discussion of the procedure, risks, and a lternatives, he consents to the surgery. This will be performed as a short-stay surgery at his earliest convenience. I recommended no lifting greater than 10 lb for the next month after the surgery. Medications: Discontinued sulfamethoxazole-trimethoprim 800-160 mg (Bactrim DS) Discontinued Reason: Patient Completed Course 1 tab PO BID 14 tabs 0RF Coding Level of Care Code New Pt Level 4 (65465) Diagnoses Umbilical hernia without obstruction and without gangrene K42.9
[2024-08-22 14:27] VITALS: BP 197/111; PULSE 82; BMI 30.6
--- OUTSIDE RECORDS SUMMARY | 2024-08-22 16:55 | XMS_ITS | Encounter Summary ---
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 Systems Software Architect Name Role Phone Tatyana Cuevas Primary Care Provider [phone] Encounter Details Date Type Department Care Team ([facility] st Contact Info) Description 11/01/2022 Orders Only [facility] CH[facility] MED & PEDS [address] [place] [address] Renetta Ag LPN Social History Tobacco Use [...] on filedocumented in this encounter Care Teams Computer Systems Software Architect Relationship Specialty Start Date End Date Tatyana Cuevas ANP [address] [place] [id number] PCP - General Family Medicine 05/19/21 documented as of this encounter
--- OUTSIDE RECORDS SUMMARY | 2024-08-22 16:55 | XMS_ITS | Clinical Summary ---
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 Percent Auto 52.6 45 - 73 % [facility] Imm Gran Pct Auto 0.7(H) 0.0 - 0.4 % [facility] Lymphocytes Percent Auto 28.6 20 - 40 % [facility] Monocytes Percent Auto 10.0 2 - 11 % [facility] Eosinophils Percent Auto 6.7(H) 0 - 4 % [facility] Basophils Percent Auto 1.4 0 - 2 % [facility] NRBC Pct Auto 0.0 0.0 - 0.2 /100WBC [facility] Neutrophils Absolute Auto 3.0 2.0 - 8.3 x10*3/uL [facility] Imm Gran Abs Auto 0.04(H) 0.00 - 0.03 X10*3/uL [facility] Lymphocytes Absolute Auto 1.6 1.2 - 4.9 X10*3/uL [facility] Monocytes Absolute Auto 0.6 0.1 - 1.2 X10*3/uL [facility] Eosinophils Absolute Auto 0.4 0.0 - 0.4 X10*3/uL [facility] Basophils Absolute Auto 0.1 0.0 - 0.2 X10*3/uL [facility] NRBC Abs Auto 0.000 0.0 - 0.012 X10*3/uL [facility] 08/08/2024 8:05 AM EST 08/08/2024 8:16 AM EST us Generic External Data Provider LAB BLOOD ORDERAB LES Final Result [facility] [address] [place] [address] [phone] * (ABNORMAL) Comprehensive Metabolic Panel (08/08/2024 8:05 AM EST) Sodium 139 135 - 145 mmol/L [facility] Potassium 4.6 3.3 - 5.1 mmol/L [facility] Comment:Slight Hemolysis.Int erpret result with caution. Chloride 104 96 - 108 mmol/L [facility] Carbon Dioxide 23 22 - 29 mmol/L [facility] Anion Gap 17 12 - 20 [facility] Urea Nitrogen (BUN) 15 9 - 16 mg/dL [facility] Creatinine, Serum 1.08 0.5 - 1.4 mg/dL [facility] Creatinine Clr Calc Pharmacy 91.1 [facility] Comment:eGFR (calculated fro m the MDRD study equation) and eCrCl(calculated from the Cockcroft-Gault equation) are based ondifferent parameters and may not yield comparable results.If eCrCl result is absurd, please check patient'sheight/weight. Estimated Glomerular Filt Rate >60 [facility] Comment:Chronic Kidney Disea se: Estimated GFR < 60 mL/min/1.75b3Vutquo Kidney Disease: Estimated GFR < 15 mL/min/1.73m2 Glucose 132(H) 60 - 115 mg/dL [facility] Calcium 9.8 8.4 - 10.2 mg/dL [facility] Bilirubin, Total 1.0 0.0 - 1.0 mg/dL [facility] Aspartate Amino Transferase 129(H) 5 - 37 U/L [facility] Comment:Slight Hemolysis.Int erpret result with caution. Alanine Aminotransferase 181(H) 0 - 40 U/L [facility] Total Protein 9.5(H) 6.5 - 8.0 g/dL [facility] Albumin Level 4.6 3.5 - 5.0 g/dL [facility] Alkaline Phosphatase 100 39 - 117 U/L [facility] 08/08/2024 8:05 AM EST 08/08/2024 8:16 AM EST us Generic External Data Provider LAB BLOOD ORDERAB LES Final Result Performing Organization Address [facility] Co de Phone Number [facility] [address] [place] [address] [phone] * XR Chest 2 Views (08/08/2024 7:55 AM EST) Anatomical Region Laterality Modality Chest Radiographic Orin ging 08/08/2024 7:55 AM EST Narrative 08/08/2024 8:31 AM EST ? [facility] ?[address] ?[place] [address] ?XRay Report ? Signed ? Patient: Kathya,Mitchell ?MR#: [id number] ? : 1970 ?Acct:[id number] ? Age/Sex: 54 / M ?ADM Date: 03/06/25 ? Loc: HO.ED ? Attending Dr: ? Ordering Physician: Generic ED Physician ?? Date of Service: 08/08/24 ?? Procedure(s): XR chest 2V ?? Accession Number(s): [id number] ? cc: Generic ED Physician; KAY WHELAN [...] DD/ 0755 ? TD/TT: 08/08/24 0759 ? Morning News Anchor: ? Procedure Note Donotuseinterpreter, Image - 08/08/2024 [place] [address] XRay Report Signed Patient: Louise Rasheed#: [id number] : 1970Acct:[id number] Age/Sex: 54 / MADM Date: 08/08/24 Loc: .ED Attending Dr: Ordering Physician: Generic ED Physician Date of Service: 08/08/24 Procedure(s): XR chest 2V Accession Number(s): [id number] cc: Generic ED Physician; KAY WHELAN NP [...] 08/08/24 0829 DD/ 0755 TD/TT: 08/08/24 0759 Morning News Anchor: [facility] External Provider IMG XR PROCEDURES Final Result * Hepatitis C Antibody with Reflex to HCV, RNA, Quantitative, Real-Time PCR (08/26/2022 3:22 PM EDT) Hepatitis C Antibody NON-REACT MI NON-REACT MI [facility] Index 0.05 <1.00 [facility] Comment: HCV antibody was non-reactive. There is no laboratory evidence of HCV infection. In most cases, no further action is required. However, if recent HCV exposure is suspected, a test for HCV RNA (test code 43209) is suggested. For additional information please refer to http://education.[employer]faq/HKX58i4 (This link is being provided for informational/ educational purposes only.) Blood Venous blood specimen / Unknown 08/26/2022 3:22 PM EDT 08/26/2022 3:22 PM EDT Narrative [facility] - 09/01/2022 9:59 PM EDT FASTING:UNKNOWN FASTING: UNKNOWN Cl Peguero MD LAB BLOOD ORDERABLES Final Resul t [facility] [address], [place] [address] [facility] [address] [place] [address] * HIV-1/2 Antigen and Antibodies, Fourth Generation, with Reflexes (08/26/2022 3:22 PM EDT) HIV Antigen/Antibody, 4th Generation NON-REAC TIVE NON-REAC TIVE [facility] Comment: HIV-1 antigen and HIV-1/HIV-2 antibodies were [...] ?? For additional information please refer to http://education.[employer]faq/VFA787 (This link is being provided for informational/ educational purposes only.) The performance of this assay has not been clinically validated in patients less than 2 years old. Blood Venous blood specimen / Unknown 08/26/2022 3:22 PM EDT 08/26/2022 3:22 PM EDT Narrative [facility] - 09/01/2022 9:59 PM EDT FASTING:UNKNOWN FASTING: UNKNOWN Cl Peguero MD LAB BLOOD ORDERABLES Final Resul t [facility] [address], [place] [address] [facility] [address] [place] [address] from Last 3 Months or Most Recently Relevant to Health Maintenance Insurance [facility] C3 Care Teams Test Worker Relationship Specialty Start Date End Date Kay Whelan ANP [address] [place] [address] PCP - General Family Medicine 05/19/21
--- OUTSIDE RECORDS SUMMARY | 2024-08-22 16:55 | XMS_ITS | Encounter Summary ---
Author Organization [employer] Address [address] [place] [address] Care Team Providers Care Assembly Riveter Name Role Phone Kay Whelan DAHLIA Primary Care Provider [phone] Encounter Details Date Type Department Care Team ([facility] st Contact Info) Description 08/08/2024 Orders Only [...] Sensitivity Troponin I (08/08/2024 12:25 PM EST) TROPONIN I HIGH SENSITIVITY <2.7 <3.5 - 35.0 ng/L [facility] Comment:The Larson high sens itivity Troponin-I results should beused in conjunction with other diagnostic information suchas ECG, clinical observations and information, and patientsymptoms to aid in the diagnosis of SD. 08/08/2024 12:2 5 PM EST 08/08/2024 12:27 PM EST us Generic External Data Provider LAB BLOOD ORDERAB LES Final Result [facility] [address] [place] [phone] * CT Abdomen Pelvis w/ Contrast (08/08/2024 11:06 AM EST) Anatomical Region Laterality Modality Body, Pelvis, Abdomen Computed T omography 08/08/2024 11:0 6 AM EST Narrative 08/08/2024 12:29 PM EST ?[address] ?[place] [address] ? CT Scan Report ? Signed ? Patient: Kathya,Mitchell ?MR#: [id number] ? : 1970 ?Acct:[id number] ? Age/Sex: 54 / M ?ADM Date: 08/08/24 ? Loc: HO.ED ? Attending Dr: ? Ordering Physician: Vasyl Amezquita ?? Date of Service: 08/08/24 ?? Procedure(s): CT abdomen pelvis w IV con ?? Accession Number(s): [id number] ? cc: Vasyl Amezquita; KAY WHELAN NP ? Report Number: ?? [id number]: Total DLP = 1038.55 mGy-cm ?? EXAMINATION: [...] DD/ 1106 ? TD/TT: 08/08/24 1144 ? Housemaid: ? Procedure Note Donotuseinterpreter, Image - 08/08/[address] [address] [address] Scan Report Signed Patient: Louise Rasheed#: [id number] : 1970Acct:[id number] Age/Sex: 54 / MADM Date: 08/08/24 Loc: HO.ED Attending Dr: Ordering Physician: Vasyl Amezquita Date of Service: 08/08/24 Procedure(s): CT abdomen pelvis w IV con Accession Number(s): [id number] cc: Vasyl Amezquita; KAY WHELAN NP Report Number: [id number]: Total DLP = 1038.55 mGy-cm EXAMINATION: CT [...] 08/08/24 1226 DD/ 1106 TD/TT: 08/08/24 1144 Housemaid: [facility] External Provider IMG CT PROCEDURES Final Result * CT Chest w/ Contrast (08/08/2024 11:06 AM EST) Anatomical Region Laterality Modality Body, Chest Computed Tomogra phy 08/08/2024 11:0 6 AM EST Narrative 08/08/2024 12:21 PM EST ? [facility] ?[address] ?[place] [address] ? CT Scan Report ? Signed ? Patient: Kathya,Mitchell ?MR#: [id number] ? : 1970 ?Acct:[id number] ? Age/Sex: 54 / M ?ADM Date: 08/08/24 ? Loc: HO.ED ? Attending Dr: ? Ordering Physician: Vasyl Amezquita ?? Date of Service: 08/08/24 ?? Procedure(s): CT chest w IV con ?? Accession Number(s): [id number] ? cc: Vasyl Amezquita; KAY WHELAN NP ? Report Number: ?? [id number]: Total DLP = ??536.84 mGy-cm ?? EXAMINATION: [...] DLP: 522.32 mGy centimeter. ? FINDINGS: ? GENERAL SALES MANAGER: No hyperinflation. Both upper extremities at the [...] DD/ 1106 ? TD/TT: 08/08/24 1144 ? Housemaid: ? Procedure Note Jorge Guan - 08/08/[address] [place] [address] [address] Scan Report Signed Patient: Louise Rasheed#: [id number] : 1970Acct:[id number] Age/Sex: 54 / MADM Date: 08/08/24 Loc: HO.ED Attending Dr: Ordering Physician: Vasyl Amezquita Date of Service: 08/08/24 Procedure(s): CT chest w IV con Accession Number(s): [id number] cc: Vasyl Amezquita; KYA WHELAN NP Report Number: [id number]: Total DLP = 536.84 mGy-cm EXAMINATION: CT [...] reconstruction technique. DLP: 522.32 mGy centimeter. FINDINGS: GENERAL SALES MANAGER: No hyperinflation. Both upper extremities at the [...] by: Saul Velez MD 08/08/2024 12:18 PM [facility] Dictated By: Saul Kothari MD Signed By: <Electronically signed by Saul Lomax MDin OV> 08/08/24 1218 DD/ 1106 TD/TT: 08/08/24 1144 Housemaid: us External Provider IMG CT PROCEDURES Final Result * CT Cervical Spine w/o Contrast (08/08/2024 11:01 AM EST) Anatomical Region Laterality Modality Spine, C-spine Computed Tomogra phy 08/08/2024 11:0 1 AM EST Narrative 08/08/2024 12:10 PM EST ?[address] ?[place] [address] ? CT Scan Report ? Signed ? Patient: Kathya,Mitchell ?MR#: [id number] ? : 1970 ?Acct:[id number] ? Age/Sex: 54 / M ?ADM Date: 08/08/24 ? Loc: HO.ED ? Attending Dr: ? Ordering Physician: Vasyl Amezquita ?? Date of Service: 08/08/24 ?? Procedure(s): CT cervical spine wo IV con ?? Accession Number(s): [id number] ? cc: Vasyl Amezquita; KAY WHELAN NP ? Report Number: ?? [id number]: Total DLP = ??470.18 mGy-cm ?? EXAMINATION: [...] Velez MD ??08/08/2024 12:07 PM ?? EST RP ? Dictated By: ?Saul Kothari MD ? Signed By: ?<Electronically signed by Saul Lomax MD in OV> ? 08/08/24 1207 ? DD/ 1101 ? TD/TT: 08/08/24 1144 ? Housemaid: ? Procedure Note Jorge Guan - 08/08/[address] [place] [address] [address] Scan Report Signed Patient: Louise Rasheed#: [id number] : 1970Acct:[id number] Age/Sex: 54 / MADM Date: 08/08/24 Loc: HO.ED Attending Dr: Ordering Physician: Vasyl Amezquita Date of Service: 08/08/24 Procedure(s): CT cervical spine wo IV con Accession Number(s): [id number] cc: Vasyl Amezquita; KAY WHELAN NP Report Number: [id number]: Total DLP = 470.18 mGy-cm EXAMINATION: CT [...] Saul Velez MD 08/08/2024 12:07 PM EST RP Dictated By: Saul Kothari MD Signed By: <Electronically signed by Saul Lomax MDin OV> 08/08/24 1207 DD/ 1101 TD/TT: 08/08/24 1144 Housemaid: [facility] External Provider IMG CT PROCEDURES Final Result * CT Head w/o Contrast (08/08/2024 11:01 AM EST) Anatomical Region Laterality Modality Head, Neck Computed Tomogra phy 08/08/2024 11:0 1 AM EST Narrative 08/08/2024 12:03 PM EST ?[address] ?[place] [address] ? CT Scan Report ? Signed ? Patient: Kathya,Mitchell ?MR#: [id number] ? : 1970 ?Acct:[id number] ? Age/Sex: 54 / M ?ADM Date: 03/06/25 ? Loc: HO.ED ? Attending Dr: ? Ordering Physician: Vasyl Amezquita ?? Date of Service: 08/08/24 ?? Procedure(s): CT head/brain wo IV con ?? Accession Number(s): [id number] ? cc: Vasyl Amezquita; KAY WHELAN NP ? Report Number: ?? [id number]: Total DLP = ??694.94 mGy-cm ?? EXAMINATION: [...] DD/ 1101 ? TD/TT: 08/08/24 1144 ? Housemaid: ? Procedure Note Freida, Image - 03/06/[address] [address] [address] Scan Report Signed Patient: Louise Rasheed#: [id number] : 1970Acct:[id number] Age/Sex: 54 / MADM Date: 08/08/24 Loc: HO.ED Attending Dr: Ordering Physician: Vasyl Amezquita Date of Service: 08/08/24 Procedure(s): CT head/brain wo IV con Accession Number(s): [id number] cc: Vasyl Amezquita; KAY WHELAN NP Report Number: [id number]: Total DLP = 694.94 mGy-cm EXAMINATION: CT [...] by: Saul Velez MD 08/08/2024 12:00 PM [facility] Dictated By: Saul Kothari MD Signed By: <Electronically signed by Saul Lomax MDin OV> 08/08/24 1200 DD/ 1101 TD/TT: 08/08/24 1144 Housemaid: [facility] External Provider IMG CT PROCEDURES Final Result * High Sensitivity Troponin I (08/08/2024 8:05 AM EST) [facility] TROPONIN I HIGH SENSITIVITY <2.7 <3.5 - 35.0 ng/L [facility] Comment:The Larson high sens itivity Troponin-I results should beused in conjunction with other diagnostic information suchas ECG, clinical observations and information, and patientsymptoms to aid in the diagnosis of SD. 08/08/2024 8:05 AM EST 08/08/2024 8:16 AM EST Generic External Data Provider LAB BLOOD ORDERAB LES Final Result [facility] [address] [place] [phone] * (ABNORMAL) Comprehensive Metabolic Panel (08/08/2024 8:05 AM EST) [facility] Sodium 139 135 - 145 mmol/L [facility] Potassium 4.6 3.3 - 5.1 mmol/L [facility] Comment:Slight Hemolysis.Int erpret result with caution. Chloride 104 96 - 108 mmol/L [facility] Carbon Dioxide 23 22 - 29 mmol/L [facility] Anion Gap 17 12 - 20 [facility] Urea Nitrogen (BUN) 15 9 - 16 mg/dL [facility] Creatinine, Serum 1.08 0.5 - 1.4 mg/dL [facility] Creatinine Clr Calc Pharmacy 91.1 [facility] Comment:eGFR (calculated fro m the MDRD study equation) and eCrCl(calculated from the Cockcroft-Gault equation) are based ondifferent parameters and may not yield comparable results.If eCrCl result is absurd, please check patient'sheight/weight. Estimated Glomerular Filt Rate >60 [facility] Comment:Chronic Kidney Disea se: Estimated GFR < 60 mL/min/1.24i6Lwdhca Kidney Disease: Estimated GFR < 15 mL/min/1.73m2 Glucose 132(H) 60 - 115 mg/dL [facility] Calcium 9.8 8.4 - 10.2 mg/dL [facility] Bilirubin, Total 1.0 0.0 - 1.0 mg/dL [facility] Aspartate Amino Transferase 129(H) 5 - 37 U/L [facility] Comment:Slight Hemolysis.Int erpret result with caution. Alanine Aminotransferase 181(H) 0 - 40 U/L [facility] Total Protein 9.5(H) 6.5 - 8.0 g/dL [facility] Albumin Level 4.6 3.5 - 5.0 g/dL [facility] Alkaline Phosphatase 100 39 - 117 U/L [facility] 08/08/2024 8:05 AM EST 08/08/2024 8:16 AM EST us Generic External Data Provider LAB BLOOD ORDERAB LES Final Result [facility] [address] [place] [phone] * (ABNORMAL) CBC auto differential (08/08/2024 8:05 AM EST) White Blood Count 5.7 4.8 - 10.8 X10*3/uL [facility] Red Blood Count 4.66 4.60 - 5.80 X10*6/uL [facility] Hemoglobin 16.0 14.0 - 18.0 g/dl [facility] Hematocrit 42.7 42.0 - 52.0 % [facility] Mean Corpuscular Volume 91.6 80.0 - 98.0 fL [facility] Mean Corpuscular Hemoglobin 34.3(H) 27.0 - 33.0 pg [facility] Mean Corpuscular HGB Conc 37.5(H) 31.0 - 36.0 g/dl [facility] Red Cell Distribution Width 11.8 11.0 - 16.0 % [facility] Platelet Count 171 160 - 400 X10*3/uL [facility] Mean Platelet Volume 10.1 9.4 - 12.4 fL [facility] Neutrophils Percent Auto 52.6 45 - 73 % [facility] Imm Gran Pct Auto 0.7(H) 0.0 - 0.4 % [facility] Lymphocytes Percent Auto 28.6 20 - 40 % [facility] Monocytes Percent Auto 10.0 2 - 11 % [facility] Eosinophils Percent Auto 6.7(H) 0 - 4 % [facility] Basophils Percent Auto 1.4 0 - 2 % [facility] NRBC Pct Auto 0.0 0.0 - 0.2 /100WBC [facility] Neutrophils Absolute Auto 3.0 2.0 - 8.3 x10*3/uL [facility] Imm Gran Abs Auto 0.04(H) 0.00 - 0.03 X10*3/uL [facility] Lymphocytes Absolute Auto 1.6 1.2 - 4.9 X10*3/uL [facility] Monocytes Absolute Auto 0.6 0.1 - 1.2 X10*3/uL [facility] Eosinophils Absolute Auto 0.4 0.0 - 0.4 X10*3/uL [facility] Basophils Absolute Auto 0.1 0.0 - 0.2 X10*3/uL [facility] NRBC Abs Auto 0.000 0.0 - 0.012 X10*3/uL [facility] 08/08/2024 8:05 AM EST 08/08/2024 8:16 AM EST us Generic External Data Provider LAB BLOOD ORDERAB LES Final Result [facility] [address] [place], [place] [phone] * XR Chest 2 Views (08/08/2024 7:55 AM EST) Anatomical Region Laterality Modality Chest Radiographic Orin ging 08/08/2024 7:55 AM EST Narrative 08/08/2024 8:31 AM EST ? [facility] ?[address] ?[place] [address] ?XRay Report ? Signed ? Patient: Kathya,Mitchell ?MR#: [id number] ? : 1970 ?Acct:[id number] ? Age/Sex: 54 / M ?ADM Date: 08/08/24 ? Loc: HO.ED ? Attending Dr: ? Ordering Physician: Generic ED Physician ?? Date of Service: 08/08/24 ?? Procedure(s): XR chest 2V ?? Accession Number(s): [id number] ? cc: Generic ED Physician; KAY WHELAN [...] DD/ 0755 ? TD/TT: 08/08/24 0759 ? Housemaid: ? Procedure Note Jorge Guan - 08/08/[address] [address] XRay Report Signed Patient: Louise Rasheed#: [id number] : 1970Acct:[id number] Age/Sex: 54 / MADM Date: 08/08/24 Loc: HO.ED Attending Dr: Ordering Physician: Generic ED Physician Date of Service: 08/08/24 Procedure(s): XR chest 2V Accession Number(s): [id number] cc: Generic ED Physician; WHELAN,KAY CORE SHAPER EXAMINATION: XR CHEST CLINICAL INFORMATION: cp COMPARISON: [...] 08/08/24 0829 DD/ 0755 TD/TT: 08/08/24 0759 Housemaid: [facility] External Provider IMG XR PROCEDURES Final Result documented in this encounter Visit Diagnoses Not on filedocumented in this encounter Care Teams Assembly Riveter Relationship Specialty Start Date End Date Kay Whelan ANP [address] [place] [address] PCP - General Family Medicine 05/19/21 documented as of this encounter
--- OUTSIDE RECORDS SUMMARY | 2024-08-22 16:55 | XMS_ITS | Encounter Summary ---
Author Organization [email or web address] Address [address] [place] [address] Care Team Providers Care Drug Enforcement Agent Name Role Phone Tatyana Cuevas Primary Care Provider [phone] Reason for Visit * Reason Onset Date Comments Appt Status 08/17/2022 Encounter Details Date Type Department Care Team ([facility] st Contact Info) Description 08/17/2022 Telephone [facility] [address] [place] [address] Tatyana Cuevas ANP [address] [place] [address] Appt Status Social History Tobacco Use Types [...] over with provider. Please contact pt at [phone] documented in this encounter Plan of Treatment Not on file documented as of this encounter Visit Diagnoses Not on filedocumented in this encounter Care Teams Drug Enforcement Agent Relationship Specialty Start Date End Date Tatyana Cuevsa ANP [address] [place] [address] PCP - General Family Medicine 05/19/21 documented as of this encounter
== END 2024-08-22 14:35 | disposition home or self-care (01) ==
LOC: HO.HGS 14:16
PROVIDERS: PCP Nurse Practitioner Primary Care; Visit Provider Surgery
DX: K42.9 Umbilical hernia without obstruction or gangrene (principal)
CPT/HCPCS: 99204

== ENCOUNTER 2025-01-14 14:04 | Emergency (ER) | payer OTHER, SELFPAY ==
[2025-01-14 14:08] VITALS: BP 183/97; PULSE 76; RESP 17; TEMP 36.9; O2SAT 96; BMI 30.4
--- NOTE | 2025-01-14 14:11 | ED_ITS ---
HPI - General Adult General Chief complaint: Allergic Reaction Stated complaint: Bee sting - allergic reaction Time Seen by Provider: 01/14/25 14:16 Source: patient Mode of arrival: ambulatory Limitations: no limitations History of Present Illness HPI narrative: This is a 53 years old the patient presented to the emergency department complaining of bee sting in the left forearm is now start to feel swelling in th e face. He did not use epinephrine prior to the arrival Onset (ago): hour(s) (1) Location: upper extremity (Left forearm) Radiation: non-radiation Severity: moderate Quality: burning Pain Consistency: constant Relieving factors: none Exacerbating factors: none Related Data Previous Rx's ?Medication ?Instructions ?Recorded naproxen 500 mg tablet (Naprosyn) 500 mg PO BID #14 ta bs 01/17/23 lisinopril 20 1 tab PO DAILY 14 days #14 t abs 08/08/24 mg-hydrochlorothiazide 25 mg tablet (Zestoretic) naproxen 500 mg tablet 500 mg PO BID PRN pain #14 t abs 08/08/24 Allergies Allergy/AdvReac Type Severity Reaction Status Date / Time bee pollen (bee stings) Allergy Anaphylaxis Verified 01/14/25 14:14 Review of Systems Constitutional: Constitutional: Reports no additional constitutional complaints ENT: Comments: Facial swelling lip swelling PMFSH Past Medical History Attestation statement: The following information was validated with the patient. [facility] Narrative: Allergic to bee sting Medical History Hypertension Social History Social History Alcohol intake: unknown Patient Tobacco Use Status: Tobacco use Unknown Smoked in Last 30 Days: No Use of substances other than those prescribed or required for medical reasons: Yes Substance Use Type: Marijuana Substance Use Frequency Other:: occassional for sleep Advance Directives: No Advance Directives Information Provided: Yes Do you have a plan to hurt others: No Plan Physical Exam ED Exam Exam: Mild distress Vital Signs: Vital Signs - 24 hr 01/14/25 14:08 01/14/25 14:17 01/14/25 15:24 Temperature 98.4 F Pulse Rate 76 86 92 Respiratory Rate 17 22 H Blood Pressure 183/97 H 181/97 H 162/97 H Pulse Oximetry 96 94 Oxygen Delivery Method Room Air Room Air 01/14/25 15:45 01/14/25 16:08 Temperature 97.8 F Pulse Rate 79 79 Respiratory Rate 20 20 Blood Pressure 151/90 H 151/90 H Pulse Oximetry 94 94 Oxygen Delivery Method Room Air Room Air BMI result Body Mass Index 30.4 Const General: cooperative Orientation/consciousness: patient oriented x3 HENMT Face and sinus: Yes other (Facial swelling and lip swelling noted) Neck Neck: Yes normal visual inspection and Yes full ROM Resp Effort & Inspection: normal respiratory effort and able to speak in complete sentences Auscultation: clear to auscultation bilaterally Cardio Jugular venous distension: no JVD Palpation: normal PMI Rate: regular rate Rhythm: regular rhythm GI Inspection: Yes normal to inspection Palpation (GI): Soft to palpation and not firm Auscultation: normal bowel sounds Skin General skin exam: elasticity normal and turgor normal Lesions: no lesions Rashes: no rashes Wounds: no wounds Neuro General: patient oriented x3 Extrem Other: Left upper extremity there is area of redness tendon Course Course Course Narrative: Rapid medical examination performed in triage by Soheila Rico PA-C. Patient is a 54 year old assigned male at presenting to the emergency department with anaphylaxis after a bee sting. Detailed physical exam and review of systems are deferred to the nuclear medicine physician. Patient taken to room 4. Reevaluation(s) Reevaluation #1: On re-examination the patient is doing much better lungs clear Time: 15:36 Reevaluation #2: A re-examined again and doing much better anticipate discharge he already has a EpiPen and does not need another prescription Time: 15:57 Medications Administered Discontinued Medications Generic Name Dose Route Start Last Admin Trade Name Ahmetq PRN Reason Stop Dose Admin Diphenhydramine HCl 50 mg 01/14/25 14:11 01/14/25 14:22 Diphenhydramine Hcl 50 Mg/Ml Vial IVPUSH 01/14/25 14:12 50 mg ONCE ONE Administration Epinephrine 0.3 mg 01/14/25 14:16 01/14/25 14:17 Epinephrine 1 Mg/Ml Vial IM 01/14/25 14:17 0.3 mg STAT STA Administration Famotidine 20 mg 01/14/25 14:12 01/14/25 14:20 Famotidine/Pf 20 Mg/2 Ml Vial IVPUSH 01/14/25 14:13 20 mg ONCE ONE Administration Methylprednisolone Sodium Succinate 125 mg 01/14/25 14:17 01/14/25 14:18 Methylprednisolone Sod Succ 125 Mg/2 Ml Vial IVPUSH 01/14/25 14:18 125 mg ONCE ONE Administration Medical Decision Making Medical Decision Making MDM Narrative: Patient is here with a bee sting allergy we will administer Solu-Medrol Benadryl epinephrine we will monitor the patient at least 2 hours in the ED Differential Diagnosis Differential Diagnoses: The differential diagnosis associated with the presentation includes Allergic reaction/anaphylaxis Admission/Observation Consideration of admission/observation: Escalation of care including admission/observation considered Critical Care Time Critical Care Time Critical Care Time: Yes Total Critical Care Time: 60 Attestation: Allergic reaction treatment epinephrine IM/ IV Solu-Medrol/ IV Benadryl Discharge Plan Discharge Clinical Impression: Allergic reaction Qualifiers: Encounter type: initial encounter Qualified Code(s): T78.40XA - Allergy, unspecified, initial encounter Patient Disposition: Home, Self-Care Instructions: General Allergic Reaction (ED) Additional Instructions: You already have EpiPen use EpiPen as needed Prescriptions: No Action naproxen [Naprosyn] 500 mg tablet 500 mg PO BID Qty: 14 0RF lisinopril-hydrochlorothiazide [Zestoretic] 20-25 mg tablet 1 tab PO DAILY 14 Days Qty: 14 0RF naproxen 500 mg tablet 500 mg PO BID PRN (Reason: pain) Qty: 14 0RF Referrals: Tatyana Cuevas NP [Primary Care Provider, Internal Medicine] - 01/17/25 Stand Alone Forms: Work/School Release Interventions: ED Discharge Assessment Last Done: 01/14/25 16:08 Discharge Date/Time: 01/14/25 16:13 Print Language: Maori
[2025-01-14 14:17] VITALS: BP 181/97; PULSE 86
--- NOTE | 2025-01-14 14:26 | PC.NURSE ---
provider in to eval pt. Pt on full monitor. VSS somewhat tachy after med. face swollen, airway clear, controlling secretions well. No dyspnea. SR no ectopy on monitor
[2025-01-14 15:24] VITALS: BP 162/97; PULSE 92; RESP 22; O2SAT 94
--- OUTSIDE RECORDS SUMMARY | 2025-01-14 15:27 | XMS_ITS | Clinical Summary ---
Author Organization [employer] Address [address] [place] [address] [address] [place] [address] Care Team Providers Care Contact Center Manager Name Role Phone Tatyana Cuevas Primary Care Provider Allergies Active Allergy Reactions Criticality Noted Date Comments Honey Bee Venom 01/16/2023 Medications * This document contains information received from the source organization and may not represent a complete record from that organization. senna (Senokot) 8.6 MG tablet TAKE 2 TABLETS BY MOUTH EVERY DAY 180 tablet 1 3 Active cetirizine (ZyrTEC) 10 MG tabletIndications :Bee sting reaction, accidental or unintentional, initial encounter Take 1 tablet (10 mg) by mouth in the morning. 90 tablet 1 3 Active ibuprofen 600 MG tabletIndications :Bee sting reaction, accidental or unintentional, initial encounter Take 1 tablet (600 mg) by mouth 3 times daily. 90 tablet 1 3 Active folic acid (Folvite) 1 MG tabletIndications :Alcohol use disorder Take 1 tablet (1 mg) by mouth Once per day. 90 tablet 3 5 09/25/19 26 Active thiamine (Vitamin B-1) 100 MG tabletIndications :Alcohol use disorder Take 1 tablet (100 mg) by mouth Once per day. 90 tablet 3 5 09/25/19 26 Active EPINEPHrine (Epipen) 0.3 MG/0.3ML injection syringeIndication s:Bee sting reaction, accidental or unintentional, initial encounter Inject 0.3 mL (0.3 mg) as directed 1 (one) time for 1 dose. use as directed for allergic reaction and then call 911 2 each 5 Active lisinopril-hydroC HLOROthiazide 20-25 MG tabletIndications :Essential hypertension Take 1 tablet by mouth Once per day. 90 tablet 3 5 09/25/19 26 Active Blood Pressure kitIndications:Hy pertensive urgency 1 each 2 times daily. 1 kit 5 09/25/19 26 Active ketoconazole (NIZOral) 2 % creamIndications: Rash Apply topically 2 times daily. 60 g 5 Active Active Problems Problem Noted Date Diagnosed Date Essential hypertension 01/16/2023 Encounters * This document contains information received from the source organization and may not represent a complete record from that organization. Date Type Department Care Team Description 01/03/[address] [address] Tatyana Cuevas ANP 01/02/[address] [address] Tatyana Cuevas ANP CHART PREP 12/27/2024 Patient Outreach [address] [address] Tatyana Cuevas ANP Pre-visit Planning (SDOH screening was completed on 09/24/2024) 10/31/2024 Patient Outreach [address] [address] Michele Herrera Recovery Supports 10/30/[address] [address] Zakia Tony MA from Last 3 Months Immunizations Immunization Administration Dates Next Due Hep B, adult 09/24/2024 Pneumococcal Conjugate PCV 20 09/24/2024 Social History Tobacco Use Types Packs/Day Years Used Date Smoking Tobacco: Never Smokeless Tobacco: Never Tobacco Cessation:Counseling Given: Not Answered Alcohol Use Standard Drinks/Week Comments Yes 0 (1 standard drink = 0.6 oz pur e alcohol) Depression Answer Date Recorded Patient Health Questionnaire-9 Score 12 09/24/2024 Patient Health Questionnaire-9 Score 12 09/24/2024 Last PHQ-9: Questionnaire Data Not on file 0 09/24/2024 Housing Stability Answer Date Recorded What is your housing situation today? I have tracy gupta 09/24/[address] you li ve. Do you have problems with any of the following? None of the above 09/24/2024 Food Insecurity Answer Date Recorded Within the past 12 months, y ou worried that your food would run out before you got money to buy more: Never True 09/24/2024 Within the past 12 months,th e food you bought just didn't last and you didn't have enough money to get more: Never True Transportation Answer Date Recorded In the past 12 months, has l ack of transportation kept you from medical appts, meetings, work or from getting things needed for daily living? No 09/24/2024 Utilities Answer Date Recorded In the past 12 months, has t he electric, gas, oil or water company threatened to shut off services in your home? No 09/24/2024 Depression Answer Date Recorded Patient Health Questionnaire-2 Score 3 09/24/2024 Internet Access Answer Date Recorded Internet Access Q1 Yes 09/24/2024 Internet Access Q2 Not on file 09/24/2024 Sex and Gender Information Value Date Recorded Sex Assigned at Male 04/04/2022 10:27 AM EDT Legal Sex Male 10:27 AM EDT Gender Identity Male 04/04/2022 10:27 AM EDT Sexual Orientation Choose not to disclose 2021 10:27 AM EDT Last Filed Vital Signs Vital Sign Reading Time Taken Comments Blood Pressure 170/100 09/24/2024 10:29 AM EDT Pulse 80 01/16/2023 2:43 PM EDT Temperature 37.2 C (98.9 F) 01/16/2023 2:43 PM EDT Respiratory Rate 20 09/24/2024 10:03 AM EDT Oxygen Saturation 97% 01/16/2023 2:43 PM EDT Inhaled Oxygen Concentration - - Weight 96.2 kg (212 lb) 09/24/2024 10:03 AM EDT Height 177.8 cm (5' 10 ) 09/24/2024 10:03 AM EDT Body Mass Index 30.42 09/24/2024 10:03 AM EDT Plan of Treatment Health Maintenance Due Date Last Done Comments CT Colonography 1971 Colonoscopy 1971 Colorectal Cancer Screening 1971 FIT DNA/Cologuard 1971 FIT 1971 FOBT 1971 Lipid Panel 1971 Sigmoidoscopy 1971 Zoster Vaccines (1 of 2) 2021 COVID-19 Vaccine (3 - 2023-2 5 season) 2024 06/11/2021, 02/17/2021 Influenza Vaccine (#1) 2025 Depression Monitoring 03/26/2025 09/24/2024 , 09/24/2024 Alcohol/Substance Use Screening 09/24/2025 09/24/2024 Disability Screening 09/24/2025 09/24/2024 SDOH Screening 09/24/2025 09/24/2024 Tobacco Screening 09/24/2025 09/24/2024 DTaP/Tdap/Td Vaccines (3 - T d or Tdap) 10/24/2031 10/23/2021, 11/17/2016 RSV Patients and Patients Aged 60 years or older (1 - 1-dose 75+ series) 2046 HIV Screening Completed 08/26/2022 Hepatitis C Screening Completed 08/26/2022 Hepatitis B Vaccines Completed 09/24/2024, 12/22/2016, 11/22/2016 Pneumococcal Vaccine: 50+ Years Completed 09/24/2024 HIB Vaccines Aged Out No longer eligi [...] patient's age to complete this topic Meningococcal B Vaccine Aged Out No l onger eligible based on patient's age to complete [...] Procedure Name Priority Date/Time Associated Diagnosis Comments HEPATITIS C AB W/REFL TO HCV RNA, QN, PCR Routine 08/26/2022 3:22 PM EDT Alcohol use disorder, severe, dependence (CMS/HCC) HIV 1/2 ANTIGEN/ANTIBODY, FOURTH GENERATION W/RFL Routine 08/26/2022 3:22 PM EDT Alcohol use disorder, severe, dependence (CMS/HCC) from Last 3 Months or Most Recently Relevant to Health Maintenance Results * Hepatitis C Antibody with Reflex to HCV, RNA, Quantitative, Real-Time PCR (08/26/2022 3:22 PM EDT) Hepatitis C Antibody NON-REACT MI NON-REACT MI [employer] [place] [employer] Index 0.05 <1.00 [employer] [place] [employer] Comment: HCV antibody was non-reactive. There is no laboratory evidence of HCV infection. In most cases, no further action is required. However, if recent HCV exposure is suspected, a test for HCV RNA (test code 28439) is suggested. For additional information please refer to http://education.pMDsoft/faq/GCN86u3 (This link is being provided for informational/ educational purposes only.) Blood Venous blood specimen / Unknown 08/26/2022 3:22 PM EDT 08/26/2022 3:22 PM EDT Narrative [facility] - 09/01/2022 9:59 PM EDT FASTING:UNKNOWN FASTING: UNKNOWN us Cl Peguero MD LAB BLOOD ORDERABLES Final Resul t [facility] [address], [place] [address] [employer]to[facility] [place] [employer] [address] [place] [address] * HIV-1/2 Antigen and Antibodies, Fourth Generation, with Reflexes (08/26/2022 3:22 PM EDT) HIV Antigen/Antibody, 4th Generation NON-REAC TIVE NON-REAC TIVE [employer] [place] [employer] Comment: HIV-1 antigen and HIV-1/HIV-2 antibodies were not detected. There is no laboratory evidence of HIV infection. PLEASE NOTE: This information has been disclosed to you from records whose confidentiality may be protected by state law. If your state requires such protection, then the state law prohibits you from making any further disclosure of the information without the specific written consent of the person to whom it pertains, or as otherwise permitted by law. A general authorization for the release of medical or other information is NOT sufficient for this purpose. For additional information please refer to http://education.pMDsoft/faq/VVZ380 (This link is being provided for informational/ educational purposes only.) The performance of this assay has not been clinically validated in patients less than 2 years old. Blood Venous blood specimen / Unknown 08/26/2022 3:22 PM EDT 08/26/2022 3:22 PM EDT Narrative [facility] - 09/01/2022 9:59 PM EDT FASTING:UNKNOWN FASTING: UNKNOWN us Cl Peguero MD LAB BLOOD ORDERABLES Final Resul t [facility] [address], [place] [address] 5to1 [facility] [address] [place] [address] from Last 3 Months or Most Recently Relevant to Health Maintenance Insurance [facility] Care Teams Contact Center Manager Relationship Specialty Start Date End Date Tatyana Cuevas ANP [address] [place] [address] PCP - General Family Medicine 05/19/21
[2025-01-14 15:45] VITALS: BP 151/90; PULSE 79; RESP 20; O2SAT 94
--- NOTE | 2025-01-14 15:45 | PC.NURSE ---
pt remains on RA w/o difficulty s/p previous medication administration. managing secretions w/o difficulty. no airway compromise noted. no sob/wob noted. respirations even/unlabored. otherwise vss and up to date. facial swelling decreased at this time. plan of care ongoing. call liu placed within reach.
[2025-01-14 16:08] VITALS: BP 151/90; PULSE 79; RESP 20; TEMP 36.6; O2SAT 94
== END 2025-01-14 16:13 | disposition home or self-care (01) ==
PROVIDERS: Emergency Provider Emergency Medicine; PCP Nurse Practitioner Primary Care
DX: T63.441A Toxic effect of venom of bees, accidental (unintentional), initial encounter (principal); M79.632 Pain in left forearm; Y92.9 Unspecified place or not applicable; I10 Essential (primary) hypertension
CPT/HCPCS: 96372; 96374; 96375; 99284; 99291; J0165; J1200; J1308; J2919

== ENCOUNTER 2025-01-16 15:19 | Emergency (ER) | payer OTHER, SELFPAY ==
[2025-01-16 15:28] VITALS: BP 173/103; PULSE 86; RESP 16; TEMP 36.8; O2SAT 98; BMI 30.7
--- OUTSIDE RECORDS SUMMARY | 2025-01-16 16:03 | XMS_ITS | Clinical Summary ---
Author Organization [employer] Address [address] [place] [address] [address] [place] [address] Care Team Providers Care Interactive Media Designer Name Role Phone Tatyana Cuevas Primary Care Provider [phone] Allergies Active Allergy Reactions Criticality Noted Date [...] Type Department Care Team Description 01/03/[address] [address] Tatyana Cuevas ANP 01/02/[address] [address] Tatyana Cuveas ANP CHART PREP 12/27/2024 Patient Outreach [address] [address] Tatyana Cuevas ANP Pre-visit Planning (SDOH screening was completed on 09/24/2024) 10/31/2024 Patient Outreach [address] [address] Michele Herrera Recovery Supports 10/30/[address] [address] Zakia Tony MA from Last 3 Months [...] Vaccines (1 of 2) 2021 COVID-19 Vaccine (1 - 2023-2 5 season) 2024 Influenza Vaccine (#1) 2025 Depression Monitoring 03/26/2025 [...] Hepatitis C Antibody NON-REACT MI NON-REACT MI [employer] [place] Index 0.05 <1.00 [employer] [place] [employer] Comment: HCV antibody was non-reactive. There is no laboratory evidence of HCV infection. In most cases, no further action is required. However, if recent HCV exposure is suspected, a test for HCV RNA (test code 74749) is suggested. For additional information please refer to http://education.Proxama/faq/AQC50m5 (This link is being provided for informational/ educational purposes only.) Blood Venous blood specimen / Unknown 08/26/2022 3:22 PM EDT 08/26/2022 3:22 PM EDT Narrative [facility] - 09/01/2022 9:59 PM EDT FASTING:UNKNOWN FASTING: UNKNOWN Cl Peguero MD LAB BLOOD ORDERABLES Final Resul t [facility] [address], [place] [address] [employer] [place] [facility] [address] [place] [address] * HIV-1/2 Antigen and Antibodies, Fourth Generation, with Reflexes (08/26/2022 3:22 PM EDT) HIV Antigen/Antibody, 4th Generation NON-REAC TIVE NON-REAC TIVE [employer] [place] [employer] Comment: HIV-1 antigen and HIV-1/HIV-2 antibodies were [...] purpose. For additional information please refer to http://education.Proxama/faq/ZQG368 (This link is being provided for informational/ educational purposes only.) The performance of this assay has not been clinically validated in patients less than 2 years old. Blood Venous blood specimen / Unknown 08/26/2022 3:22 PM EDT 08/26/2022 3:22 PM EDT Narrative [facility] - 09/01/2022 9:59 PM EDT FASTING:UNKNOWN FASTING: UNKNOWN Cl Peguero MD LAB BLOOD ORDERABLES Final Resul t [facility] [address], [place] [address] [employer] [facility] [address] [place] [address] from Last 3 Months or Most Recently Relevant to Health Maintenance [facility] Care Teams Interactive Media Designer Relationship Specialty Start Date End Date Tatyana Cuevas ANP [address] [place] [address] PCP - General Family Medicine 05/19/21
--- NOTE | 2025-01-16 16:38 | ED_ITS ---
HPI - Allergic Reaction General Chief complaint: Allergic Reaction Stated complaint: Allergic reaction (Bee Sting 2days ago) Time Seen by Provider: 01/16/25 15:39 Source: patient and old records reviewed Mode of arrival: ambulatory Limitations: no limitations History of Present Illness ED Provider: AGUS NGUYEN narrative: 54 yo male with PMH of HTN has not taken his lisinopril in a few days though, just seen here 01/14 for bee sting in L forearm with angioedema - he does carry an epi pen. When in the ED he did well and responded to Epi, benadryl, pepcid and IV solumedrol. He went home and then noted symptoms of hives, upper lip swelling and tingling started at 0300. He admits to not taking his BP medications today. He has not taken any OTC medications. MD complaint: allergic reaction, hives and facial swelling Onset (ago): hour(s) (3am today) Symptoms: rash, itching and lip swelling Severity: moderate Treatment prior to arrival: none Previous Allergic Reaction History: prior ED visit(s), anaphylaxis and angioedema Related Data Previous Rx's ?Medication ?Instructions ?Recorded naproxen 500 mg tablet (Naprosyn) 500 mg PO BID #14 ta bs 01/17/23 lisinopril 20 1 tab PO DAILY 14 days #14 t abs 08/08/24 mg-hydrochlorothiazide 25 mg tablet (Zestoretic) naproxen 500 mg tablet 500 mg PO BID PRN pain #14 t abs 08/08/24 amlodipine 5 mg tablet 5 mg PO DAILY #30 tabs 01/16 cephalexin 500 mg capsule 500 mg PO QID 5 days #20 cap s 01/16/25 hydrochlorothiazide 25 mg tablet 25 mg PO DAILY #30 ta bs 01/16/25 hydrocortisone 1 % topical cream 1 appl topical TID [place] N itching 01/16/25 #28.35 grams loratadine 10 mg tablet (Claritin) 10 mg PO DAILY #10 tabs 01/16/25 prednisone 20 mg tablet 40 mg (2 x 20 mg) PO DAILY 5 days 01/16/25 #10 tabs Allergies Allergy/AdvReac Type Severity Reaction Status Date / Time bee pollen (bee stings) Allergy Anaphylaxis Verified 01/16/25 15:34 Review of Systems 2 Review of Systems: Constitutional : No Fever, No Chills ENT/Mouth : positive oral swelling, No Hoarseness, No Swallowing Difficulty Eyes: No Eye Pain, No Swelling, No Redness Cardiovascular : No Chest Pain, No SOB Respiratory : No Cough, No Sputum, No Wheezing, No Smoke Exposure, No Dyspnea Gastrointestinal : No Nausea, No Vomiting, No Diarrhea, No abdominal Pain Genitourinary : No Dysuria, No Urinary Frequency, No Hematuria Musculoskeletal : No joint pain, No Myalgias, No Joint Swelling Skin : No Skin Lesions, positive rash All other systems reviewed and are negative [facility] Past Medical History Medical History Hypertension Social History Social History Alcohol intake: unknown Patient Tobacco Use Status: Tobacco use Unknown Substance Use Type: Marijuana Advance Directives: No Advance Directives Information Provided: Yes Do you have a plan to hurt others: No Plan Physical Exam ED Vital Signs: Vital Signs - 24 hr 01/16/25 15:28 01/16/25 17:52 Temperature 98.2 F 99.3 F Pulse Rate 86 68 Respiratory Rate 16 20 Blood Pressure 173/103 H 189/101 H Pulse Oximetry 98 98 Oxygen Delivery Method Room Air Room Air BMI result Body Mass Index 30.7 Appearance: Alert. Oriented X3. No acute distress. Eyes: Pupils equal, round and reactive to light. ENT: Pharynx upper lip swelling Neck: Normal inspection. Neck supple. no stridor, normal posterior oropharynx, hives noted anterior neck CVS: Normal heart rate and rhythm. Pulses normal. Respiratory: No respiratory distress. Breath sounds normal. Abdomen: Soft and nontender. Skin: Skin warm and dry. Normal skin color. warmth and almost contact dermatitis like rash to L forearm it appears more allergic than infectios Extremities: No lower extremity edema. Neuro: Oriented X 3. No motor deficit. No sensory deficit. CN2-12 intact Course Course Course Narrative: signed out to Dr. Hartman pending observation Reevaluation(s) Reevaluation #1: DR. Hartman's progress note: Patient is sitting on a chair comfortably, blood pressure is slightly elevated, otherwise his O2 sat is 98% respiratory rate is 20 exam shows no wheezing in the lung maria, no stridor, patent airway, uvula is midline, O2 sat is 98%. Will discharge with the plan of changing lisinopril, few days of prednisone. Time: 19:00 Medications Administered Discontinued Medications Generic Name Dose Route Start Last Admin Trade Name Héctor PRN Reason Stop Dose Admin Famotidine 20 mg 01/16/25 15:40 01/16/25 15:57 Famotidine/Pf 20 Mg/2 Ml Vial IVPUSH 01/16/25 15:41 20 mg ONCE ONE Administration Loratadine 10 mg 01/16/25 15:40 01/16/25 15:58 Loratadine 10 Mg Tablet PO 01/16/25 15:41 10 mg ONCE ONE Administration Methylprednisolone Sodium Succinate 60 mg 01/16/25 15:40 01/16/25 15:58 Methylprednisolone Sod Succ 125 Mg/2 Ml Vial IVPUSH 01/16/25 15:41 60 mg ONCE ONE Administration Medical Decision Making Medical Decision Making MDM Narrative: 54 yo male with PMH of HTN on lisinopril here with c/o recurrent symptoms of allergic reaction starting at 3am. He has epi pen he did not use he denies diff swallowing or breathing. BP is high due to lack of meds. At this time I am going to start on amlodipine and DC his lisinopril. He will be given steroids, pepcid, claritin and observed. His arm is slightly more red and angry though I am leaning towards more contact dermtitis appearnce and reaction vs celllulitis. I will start on short course cephalexin as he states the redness acutely worsened Differential Diagnosis Differential Diagnoses: The differential diagnosis associated with the presentation includes allergy, dermatitis, cellulitis Admission/Observation Consideration of admission/observation: Escalation of care including admission/observation considered if okay at 2 hours will DC home with multiple medications and stop his lisinopril just in case that is a factor External Record Review External record reviewed: Outpatient record Prescription Management I considered prescription management with: Antibiotic and Other Discharge Plan Discharge Clinical Impression: Allergic reaction Qualifiers: Encounter type: subsequent encounter Qualified Code(s): T78.40XD - Allergy, unspecified, subsequent encounter Patient Disposition: Home, Self-Care Instructions: General Allergic Reaction (ED) Additional Instructions: stop taking lisinopril will switch to new blood pressure medications please only take these return for worsening symptoms or concerns monitor L forearm for increased rash, fevers, yellow drainage or any other concerns. Prescriptions: New hydrochlorothiazide 25 mg tablet 25 mg PO DAILY Qty: 30 2RF prednisone 20 mg tablet 40 mg PO DAILY 5 Days Qty: 10 0RF amlodipine 5 mg tablet 5 mg PO DAILY Qty: 30 2RF loratadine [Claritin] 10 mg tablet 10 mg PO DAILY Qty: 10 0RF hydrocortisone 1 % cream 1 appl topical TID PRN (Reason: itching) Qty: 28.35 0RF cephalexin 500 mg capsule 500 mg PO QID 5 Days Qty: 20 0RF No Action naproxen [Naprosyn] 500 mg tablet 500 mg PO BID Qty: 14 0RF lisinopril-hydrochlorothiazide [Zestoretic] 20-25 mg tablet 1 tab PO DAILY 14 Days Qty: 14 0RF naproxen 500 mg tablet 500 mg PO BID PRN (Reason: pain) Qty: 14 0RF Referrals: Tatyana Cuevas, AUTOMATIC SPREADER OPERATOR [Primary Care Provider, Internal Medicine] Stand Alone Forms: Work/School Release Print Language: Thai
[2025-01-16 17:52] VITALS: BP 189/101; PULSE 68; RESP 20; TEMP 37.4; O2SAT 98
[2025-01-16 19:31] VITALS: BP 217/115; PULSE 74; RESP 16; TEMP 37.1; O2SAT 98
[2025-01-16 19:32] VITALS: BP 217/115
[2025-01-16 19:42] VITALS: BP 217/115; PULSE 74; RESP 16; TEMP 37.1; O2SAT 98
--- NOTE | 2025-01-16 19:45 | PC.NURSE ---
assumed care of pt, per pt denies any nausea, dizzines, dubose, pain only on L-arm from bee sting and more of an irritation. Pt BP elevated, medicated with amlodipine and pt discharged per orders.
== END 2025-01-16 19:46 | disposition home or self-care (01) ==
PROVIDERS: Emergency Provider Emergency Medicine; PCP Nurse Practitioner Primary Care
DX: T63.444A Toxic effect of venom of bees, undetermined, initial encounter (principal); M79.89 Other specified soft tissue disorders; Y92.9 Unspecified place or not applicable
CPT/HCPCS: 96374; 96375; 99284; J1308; J2919

== ENCOUNTER 2025-03-28 09:41 | Outpatient (AMB) | payer OTHER, SELFPAY ==
--- NOTE | 2025-03-28 09:48 | A.OFFVIS_ITS ---
Vital Signs 03/28/25 09:49 Height 5 ft 9 in Weight 218 lb BMI 32.2 BP 167/98 H Blood Pressure Location Rt brachial Position Sitting Pulse 86 Intake Visit Reasons: re-discuss hernia surgery Intake Note: Patient is seen in office for re-discuss umbilical hernia. Pt c/o: reports bulging out from umbilical area. On and off pain. Denies heavy lifting. Normal BM. Denies nausea, vomiting. Imaging: CT abdomen pelvis~ 08-08-2024 Editorial Director Required: No Accompanied by: Self / Same As Patient Allergies bee pollen (bee stings) Allergy (Verified 03/28/25 09:51) Anaphylaxis Medication List - Last Reconciled 03/28/25 by Henrique Spence MD amlodipine 5 mg PO DAILY hydrochlorothiazide 25 mg PO DAILY hydrocortisone 1% 1 appl topical TID PRN lisinopril-hydrochlorothiazide 20-25 mg (Zestoretic) 1 tab PO DAILY 14 days loratadine (Claritin) 10 mg PO DAILY naproxen (Naprosyn) 500 mg PO BID naproxen 500 mg PO BID PRN prednisone 40 mg (2 x 20 mg) PO DAILY 5 days HPI Comments Details: 54-year-old male patient returning for re-evaluation of an umbilical hernia. He reports the hernia has been present for many years and was previously scheduled for surgery at [facility] but subsequently did not show up due to fear of the surgery. Since this time the hernia has increased in size but is not causing any discomfort. He was previously evaluated on 08/22/2024 and recommendation for repair with mesh discussed. Since this time he denies any nausea, vomiting, fever, chills, diarrhea, or constipation. A previous CT abdomen and pelvis obtained in the emergency department revealed small bowel within the hernia sac. He is now interested in scheduling surgery to repair this umbilical hernia. [facility] Medical History Hypertension Social History Alcohol intake: current Alcohol intake frequency: 0-2 drinks per day Patient Tobacco Use Status: Tobacco use Unknown Substance Use Type: Marijuana Review of Systems Const All systems reviewed & are unremarkable except as noted in HPI and below Physical Exam Vital Signs: Last Vital Signs Pulse 86 03/28/25 09:49 BP 167/98 H 1024/25 09:49 BMI result Body Mass Index 32.2 Const General: cooperative and no acute distress Nutritional Appearance: well nourished Orientation/consciousness: patient oriented x3 Limitations: no limitations HEENT Head: Yes normocephalic and Yes atraumatic Ears: hearing grossly normal bilaterally Resp Effort & Inspection: normal respiratory effort, no audible wheezes, no cough and no respiratory distress Cardio Jugular venous distension: no JVD GI Other: Umbilical hernia now measures approximately 5 cm in diameter but is reducible with light pressure. There was no tenderness to palpation. Inspection: Yes normal to inspection Palpation (GI): Soft to palpation, nontender, no guarding and not rigid Percussion: Yes normal to percussion Auscultation: normal bowel sounds Rectal Exam - Male: Yes deferred Skin Other: Warm, dry, no rash Neuro General: patient oriented x3 Extrem General: Yes no clubbing, cyanosis or edema Assessment & Plan Assessment & Plan (1) Umbilical hernia without obstruction and without gangrene: Code(s): K42.9 - Umbilical hernia without obstruction or gangrene Category: Medical Plan I again recommended repair of this umbilical hernia with mesh. After discussion of the procedure, risks, and alternatives, he consents to the surgery. He will be scheduled as a short-stay surgery at his earliest convenience. Coding Level of Care Code Est Pt Level 4 (58942) Diagnoses Umbilical hernia without obstruction and without gangrene K42.9
[2025-03-28 09:49] VITALS: BP 167/98; PULSE 86; BMI 32.2
--- OUTSIDE RECORDS SUMMARY | 2025-03-28 10:45 | XMS_ITS | Clinical Summary ---
Author Organization [facility] Address [address] [place] [address] Care Team Providers Care Manufacturing Planner Name Role Phone Tatyana Cuevas DAHLIA Primary Care Provider [phone] Allergies Active Allergy Reactions Criticality Noted Date Comments Honey Bee Venom 01/16/2023 Medications * This document contains information received from the source organization and may not represent a complete record from that organization. senna (Senokot) 8.6 MG tablet TAKE 2 TABLETS BY MOUTH EVERY DAY 180 tablet 1 3 Active ibuprofen 600 MG [...] 2 times daily. 60 g 5 Active EPINEPHrine (Epipen) 0.3 MG/0.3ML injection syringeIndication s:Bee sting reaction, accidental or unintentional, initial encounter Inject 0.3 mL (0.3 mg) as directed 1 (one) time for 1 dose. use as directed for allergic reaction and then call 911 2 each 1 5 Active hydroCHLOROthiazi de (HYDRODiuril) 25 MG tabletIndications :Essential hypertension Take 1 tablet (25 mg) by mouth Once per day. 90 tablet 3 5 02/05/20 26 Active cetirizine (ZyrTEC) 10 MG tabletIndications :Bee sting reaction, accidental or unintentional, initial encounter Take 1 tablet (10 mg) by mouth Once per day. 90 tablet 1 5 Active predniSONE (Deltasone) 20 MG tabletIndications :Bee sting reaction, accidental or unintentional, initial encounter 2 tabs po daily for 5 days 10 tablet 5 Active Active Problems Problem Noted Date Diagnosed Date Essential hypertension 01/16/2023 Encounters Date Type Department Care Team Description 02/10/2025 2:00 PM EDT Clinical Support [address] [address] Roxanna Lomax RN Essential hypertension 02/10/2025 Travel 02/07/2025 Orders Only [facility] [address] [place] [id number] Tatyana Cuevas ANP Essential hypertension (Primary Dx) 02/06/2025 1:40 PM EDT [facility] [address] [address] Kailey Lyle MD Bee sting reaction, accidental or unintentional, initial encounter (Primary Dx) 02/06/2025 Travel 02/05/2025 10:00 AM EDT Office Visit [facility] [address] [address] Power, Cherelle, CREDIT UNION EXAMINER Bilateral lower extremity edema (Primary Dx) 02/05/2025 Telephone [facility] [address] [place] [phone] Tatyana Cuevas ANP Requested Medication Change 02/04/2025 4:00 PM EDT Office Visit [facility] [address] [address] Venkata Bales MD Essential hypertension (Primary Dx); Leg swelling 02/04/2025 Travel 01/31/2025 Telephone [facility] [address] [place] [phone] Tatyana Cuevas ANP Nurse Triage 01/23/2025 2:15 PM EDT Office Visit [address] [address] Tatyana Cuevas ANP Essential hypertension (Primary Dx); Bee sting reaction, accidental or unintentional, initial encounter; Hypertensive urgency; Hepatomegaly; Umbilical hernia without obstruction and without gangrene; Screening for malignant neoplasm of colon 01/23/2025 Travel 01/22/2025 Telephone [facility] [address] [place] [phone] Josephine Gomez SC 01/17/[address] [address] Roxanna Lomax RN ER Follow-up 01/03/[address] [address] Tatyana Cuevas ANP 01/02/[address] [address] Tatyana Cuevas ANP CHART PREP 12/27/2024 Patient Outreach [address] [address] Tatyana Cuevas ANP Pre-visit Planning ([facility] screening was completed on 09/24/2024) from Last 3 Months Immunizations Immunization Administration [...] Sign Reading Time Taken Comments Blood Pressure 158/82 02/10/2025 2:41 PM EDT Pulse 79 02/10/2025 2:41 PM EDT Temperature 36.6 C (97.8 F) 02/10/2025 2:41 PM EDT Respiratory Rate 16 02/10/2025 2:41 PM EDT Oxygen Saturation 97% 02/10/2025 2:41 PM EDT Inhaled Oxygen Concentration - - Weight 95.8 kg (211 lb 3.2 oz) 02/06/2025 1:24 P M EDT Height 177.8 cm (5' 10 ) 02/06/2025 1:24 PM EDT Body Mass Index 30.3 02/06/2025 1:24 PM EDT Plan of Treatment Upcoming Encounters Date Type Department Care Team (Late st Contact Info) Description 04/14/2025 3:00 PM EST Office Visit [facility] [address] [place] [address] Tatyana Cuevas ANP [address] [place] [address] Health Maintenance Due Date Last Done Comments CT Colonography 1971 Colonoscopy 1971 Colorectal Cancer Screening 1971 FIT DNA/Cologuard 1971 FIT 1971 FOBT 1971 Lipid Panel 1971 Sigmoidoscopy 1971 Hepatitis A Vaccines (1 of 2 - Risk 2-dose series) 1990 Zoster Vaccines (1 of 2) 2021 COVID-19 Vaccine (3 - 2024-2 6 season) 2025 06/11/2021, 02/17/2021 Influenza Vaccine (#1) 2025 Depression Monitoring 03/26/2025 09/24/2024 , 09/24/2024 Alcohol/Substance Use Screening 09/24/2025 09/24/2024 Disability Screening 09/24/2025 09/24/2024 SDOH Screening 09/24/2025 09/24/2024 Tobacco Screening 02/10/2026 02/10/2025 DTaP/Tdap/Td Vaccines (3 - T d or [...] Hepatitis C Antibody NON-REACT MI NON-REACT MI Ridley Index 0.05 <1.00 Ridley Comment: HCV antibody was non-reactive. There is no laboratory evidence of HCV infection. In most cases, no further action is required. However, if recent HCV exposure is suspected, a test for HCV RNA (test code 31423) is suggested. For additional information please refer to http://education.[employer]/faq/KZY89r8 (This link is being provided for informational/ educational purposes only.) Blood Venous blood specimen / Unknown 08/26/2022 3:22 PM EDT 08/26/2022 3:22 PM EDT Narrative [facility] - 09/01/2022 9:59 PM EDT FASTING:UNKNOWN FASTING: UNKNOWN Cl Peguero MD LAB BLOOD ORDERABLES Final Resul t [facility] [address], [place] [address] [place] [address] [place] [address] * HIV-1/2 Antigen and Antibodies, Fourth Generation, with Reflexes (08/26/2022 3:22 PM EDT) HIV Antigen/Antibody, 4th Generation NON-REAC TIVE NON-REAC TIVE [facility] Comment: HIV-1 antigen and HIV-1/HIV-2 antibodies were [...] purpose. For additional information please refer to http://education.[employer]/faq/XFS384 (This link is being provided for informational/ educational purposes only.) The performance of this assay has not been clinically validated in patients less than 2 years old. Blood Venous blood specimen / Unknown 08/26/2022 3:22 PM EDT 08/26/2022 3:22 PM EDT Narrative [facility] - 09/01/2022 9:59 PM EDT FASTING:UNKNOWN FASTING: UNKNOWN Cl Peguero MD LAB BLOOD ORDERABLES Final Resul t [facility] [address], [place] [address] [place] [facility] [address] [place] [address] from Last 3 Months or Most Recently Relevant to Health Maintenance Insurance [facility] Care Teams Manufacturing Planner Relationship Specialty Start Date End Date Tatyana Cuevas ANP [address] [place] [phone] PCP - General Family Medicine 05/19/21
--- OUTSIDE RECORDS SUMMARY | 2025-03-28 10:45 | XMS_ITS | Encounter Summary ---
Author Organization [facility] Address [address] [facility] [address] [place] [address] Care Team Providers Care Professor Of Business Administration Name Role Phone Tatyana Cuevas Primary Care Provider [phone] Reason for Visit * Reason Onset Date Comments Appt Status 08/17/2022 Encounter Details Date Type Department Care Team ([facility] Contact Info) Description 08/17/2022 Telephone [facility] [address] [place], [place] [phone] Tatyana Cuevas ANP [address] [place] [address] Appt Status Social History Tobacco Use Types [...] over with provider. Please contact pt at [phone] documented in this encounter Plan of Treatment Upcoming Encounters Date Type Department Care Team (Late st Contact Info) Description 04/14/2025 3:00 PM EST Office Visit [facility] [address] [place] [address] Tatyana Cuevas ANP [address] [place] [address] documented as of this encounter Visit Diagnoses Not on filedocumented in this encounter Care Teams Professor Of Business Administration Relationship Specialty Start Date End Date Tatyana Cuevas ANP [address] [place] [address] PCP - General Family Medicine 05/19/21 documented as of this encounter
--- OUTSIDE RECORDS SUMMARY | 2025-03-28 10:45 | XMS_ITS | Encounter Summary ---
Author Organization [facility] Address [address] [place] [address] [address] [place] [address] Care Team Providers Care Welding Setter Name Role Phone Tatyana Cuevas Primary Care Provider [phone] Encounter Details Date Type Department Care Team (Late st Contact Info) Description 11/01/2022 Orders Only [facility] [address] [place], [place] [phone] Renetta Ag LPN Social History Tobacco Use [...] as of this encounter Plan of Treatment Upcoming Encounters Date Type Department Care Team (Late st Contact Info) Description 04/14/2025 3:00 PM EST Office Visit [facility] [address] [place] [address] Tatyana Cuevas ANP [address] [place] [address] documented as of this encounter Visit Diagnoses Not on filedocumented in this encounter Care Teams Welding Setter Relationship Specialty Start Date End Date Tatyana Cuevas ANP [address] [place] [address] PCP - General Family Medicine 05/19/21 documented as of this encounter
== END 2025-03-28 10:05 | disposition home or self-care (01) ==
LOC: HO.HGS 09:42
PROVIDERS: PCP Nurse Practitioner Primary Care; Visit Provider Surgery
DX: K42.9 Umbilical hernia without obstruction or gangrene (principal)
CPT/HCPCS: 99214

== ENCOUNTER 2025-04-03 08:38 | Day surgery (SDC) | payer OTHER, SELFPAY ==
--- OUTSIDE RECORDS SUMMARY | 2025-03-31 16:17 | XMS_ITS | Clinical Summary ---
Author Organization [employer] Address 75 [facility] 7t [place] [address] Care Team Providers Care Cruller Maker Name Role Phone Tatyana Cuevas DAHLIA Primary Care Provider [phone] Allergies Active Allergy Reactions Criticality Noted Date [...] Description 02/10/2025 2:00 PM EDT Clinical Support [address] [address] Roxanna Lomax RN Essential hypertension 02/10/2025 Travel 02/07/2025 Orders Only [facility] [address] [place] [address] Tatyana Cuevas ANP Essential hypertension (Primary Dx) 02/06/2025 1:40 PM EDT [facility] [address] [address] Kailey Lyle MD Bee sting reaction, accidental or unintentional, initial encounter (Primary Dx) 02/06/2025 Travel 02/05/2025 10:00 AM EDT Office Visit [facility] [address] [address] [place], Cherelle, SCRIPT SUPERVISOR Bilateral lower extremity edema (Primary Dx) 02/05/2025 Telephone [facility] [address] [place] [address] Tatyana Cuevas ANP Requested Medication Change 02/04/2025 4:00 PM EDT Office Visit [facility] [address] [address] Venkata Bales MD Essential hypertension (Primary Dx); Leg swelling 02/04/2025 Travel 01/31/2025 Telephone [facility] [address] [place] [address] Tatyana Cuevas ANP Nurse Triage 01/23/2025 2:15 PM EDT Office Visit [facility] [address] [place] [address] Tatyana Cuevas ANP Essential hypertension (Primary Dx); Bee sting reaction, accidental or unintentional, initial encounter; Hypertensive urgency; Hepatomegaly; Umbilical hernia without obstruction and without gangrene; Screening for malignant neoplasm of colon 01/23/2025 Travel 01/22/2025 Telephone [facility] [address] [place] [address] Josephine Gomez [place] 01/17/2025 Telephone [facility] [address] [place] [address] Roxanna Lomax RN ER Follow-up 01/03/[address] [address] Tatyana Cuevas ANP 01/02/[address] [address] Tatyana Cuevas ANP CHART PREP from Last 3 Months Immunizations Immunization Administration [...] Description 04/14/2025 3:00 PM EST Office Visit [facility] [address] [place] [address] Tatyana Cuevas ANP [address] [place] [address] Health Maintenance Due Date Last Done Comments [...] Hepatitis C Antibody NON-REACT MI NON-REACT MI [facility] [place] [facility] Index 0.05 <1.00 [facility] [place] [employer] Comment: HCV antibody was non-reactive. There is no laboratory evidence of HCV infection. In most cases, no further action is required. However, if recent HCV exposure is suspected, a test for HCV RNA (test code 81148) is suggested. For additional information please refer to http://DonorSearch.Pikhub/faq/QDA72v4 (This link is being provided for informational/ educational purposes only.) Blood Venous blood specimen / Unknown 08/26/2022 3:22 PM EDT 08/26/2022 3:22 PM EDT Narrative [facility] - 09/01/2022 9:59 PM EDT FASTING:UNKNOWN FASTING: UNKNOWN us Cl Peguero MD LAB BLOOD ORDERABLES Final Resul t [facility] [address], [place] [address] [facility] [place] [facility] [address] [place] [address] * HIV-1/2 Antigen and Antibodies, Fourth Generation, with Reflexes (08/26/2022 3:22 PM EDT) HIV Antigen/Antibody, 4th Generation NON-REAC TIVE NON-REAC TIVE [facility] [place] [facility] Comment: HIV-1 antigen and HIV-1/HIV-2 antibodies were [...] purpose. For additional information please refer to http://education.Pikhub/faq/VWY868 (This link is being provided for informational/ educational purposes only.) The performance of this assay has not been clinically validated in patients less than 2 years old. Blood Venous blood specimen / Unknown 08/26/2022 3:22 PM EDT 08/26/2022 3:22 PM EDT Narrative [facility] - 09/01/2022 9:59 PM EDT FASTING:UNKNOWN FASTING: UNKNOWN Cl Peguero MD LAB BLOOD ORDERABLES Final Resul t [facility] [address], [place] [address] [facility] [address] [place] [address] from Last 3 Months or Most Recently Relevant to Health Maintenance [facility] Care Teams Cruller Maker Relationship Specialty Start Date End Date Tatyana Cuevas ANP [address] [place] [address] PCP - General Family Medicine 05/19/21
--- OUTSIDE RECORDS SUMMARY | 2025-03-31 16:17 | XMS_ITS | Encounter Summary ---
Author Organization [employer] Address [address] [place] [address] 7 [place] [address] Care Team Providers Care Repatcher Name Role Phone Tatyana Cuevas Primary Care Provider [phone] Encounter Details Date Type Department Care Team (Late st Contact Info) Description 11/01/2022 Orders Only [facility]ED[facility] [address] [place], [place] [phone] Renetta Ag LPN Social History Tobacco Use [...] Description 04/14/2025 3:00 PM EST Office Visit [facility] [address] [place] [address] Tatyana Cuevas ANP [address] [place] [address] documented as of this encounter Visit Diagnoses Not on filedocumented in this encounter Care Teams Repatcher Relationship Specialty Start Date End Date Tatyana Cuevas ANP [address] [place] [address] PCP - General Family Medicine 05/19/21 documented as of this encounter
--- OUTSIDE RECORDS SUMMARY | 2025-03-31 16:17 | XMS_ITS | Encounter Summary ---
Author Organization [employer] Address 75 [facility] 7 [place] [address] Care Team Providers Care Principal Quality Engineer Name Role Phone Tatayna Cuevas Primary Care Provider [phone] Reason for Visit * Reason Onset Date Comments Appt Status 08/17/2022 Encounter Details Date Type Department Care Team ([facility] Contact Info) Description 08/17/2022 Telephone [facility] MEDICINE [address] [place], [place] [phone] Tatyana Cuevas ANP 230 [place] [address] Appt Status Social History Tobacco Use Types [...] over with provider. Please contact pt at [phone] documented in this encounter Plan of Treatment Upcoming Encounters Date Type Department Care Team (Late st Contact Info) Description 04/14/2025 3:00 PM EST Office Visit [facility] [address] [place] [address] Tatyana Cuevas ANP [address] [place] [address] documented as of this encounter Visit Diagnoses Not on filedocumented in this encounter Care Teams Principal Quality Engineer Relationship Specialty Start Date End Date Tatyana Cuevas ANP [address] [place] [address] PCP - General Family Medicine 05/19/21 documented as of this encounter
--- NOTE | 2025-04-01 10:13 | HO.ANESPROP2 ---
Documented by User: Radha Mccartney NP 04/01/25 10:13 HPI - Anesthesia Eval Consult details Narrative: 54yo M for Repair Hernia Umbilical Reducible with mesh [facility] Active Problems Active Problems: All Active Problems Umbilical hernia without obstruction and without gangrene (Acute) Past Medical History Medical History Hypertension Social History Social History Alcohol intake: current Alcohol intake frequency: 0-2 drinks per day Patient Tobacco Use Status: Tobacco use Unknown Substance Use Type: Marijuana Meds Allergies Allergy/AdvReac Type Severity Reaction Status Date / Time bee pollen (bee stings) Allergy Anaphylaxis Verified 03/28/25 09:51 Assessment and Plan Assessment Anesthesia Assessment: Chart Reviewed Documented by User: Bettye Banks MD 04/03/25 08:13 HPI - Anesthesia Eval Anesthesia Pre-Procedure Meds Is the patient on any of the following meds?: SGLT2 Inhib (risk of euglycemic ketoacidosis, with prolonged fasting and improper stopping of meds) [facility] Past Medical History Medical History Hypertension Family History Family history of problems with anesthesia: No Surgical History History of Problems with Anesthesia: No Social History Social History Alcohol intake: current Alcohol intake frequency: 0-2 drinks per day Patient Tobacco Use Status: Tobacco use Unknown Substance Use Type: Marijuana Meds Allergies Allergy/AdvReac Type Severity Reaction Status Date / Time bee pollen (bee stings) Allergy Anaphylaxis Verified 03/28/25 09:51 Exam Airway Mallampati Class: II TM Dist: >3cm Neck ROM: Full Heart: rrr Lungs: cta Assessment and Plan Assessment Anesthesia Assessment: Anesthesia Plan Discussed Final Anesthetic Review Family History of Problems with Anesthesia: No History of Problems with Anesthesia: No NPO: Yes ASA Class: III Final Preanesthetic Review: No Changes in Pt Med Stat, Meds/Allgs Chart Reviewed, Consent Obtained/Reviewed and Anes Risks/Benef Reviewed Patient Risk: Intermediate Procedure Risk: Low Anesthetic Plan Anesthetic Plan: GA and Agree w/ Assess. and Plan Disposition: Standard PACU
[2025-04-03 08:54] VITALS: BMI 30.9
[2025-04-03 09:12] VITALS: BP 171/103; PULSE 71; RESP 15; TEMP 36.7; O2SAT 96
--- NOTE | 2025-04-03 09:57 | MHC.SHP ---
Pre-Procedural Eval Section A - 24 Hr Update-Section A only Date of Service: 04/03/25 The patient is an INPATIENT: No Changes since office visit: Yes Patient answered all questions; No Cold of Flu in the past 2 weeks, No New Medical Problems and No Changes in Medication The patient has been examined within 24 hours of the surgical procedure. The History & Physical has been completed within 30 days and I have reviewed it.: Yes Section B - Complete if H&P > 30 days Chief Complaint: Umbilical hernia without obstruction or gangrene Allergies: Allergies Allergy/AdvReac Type Severity Reaction Status Date / Time bee pollen (bee stings) Allergy Anaphylaxis Verified 04/03/25 08:52 Plan Diagnosis/Plan: Unchanged I have reviewed the history and physical and performed a pertinent physical examination on my patient. No changes have occurred unless specified. Time Spent With Patient Time: Total time managing care of this patient today ____ minutes.
[2025-04-03] MEDS: Lactated Ringers 1,000 ML 100 ML IVCONT (10:02)
--- NOTE | 2025-04-03 10:05 | PC.NURSE ---
anes made aware of high bps. pt very anxious about 1st surgery. ok'd to proceed with last bp of 179/110
--- NOTE | 2025-04-03 11:14 | P.OP_ITS ---
Operative Note Operative Note Date of Service: 04/03/25 Narrative: Preoperative diagnosis: Reducible umbilical hernia Postoperative diagnosis: Same Procedure: Repair of reducible umbilical hernia with mesh Surgeon: Henrique Spence MD Structural Technician: Gloria Little PA-C; Tima Tran PA-C Anesthesia: General LMA Indications for procedure: 54-year-old male patient presenting with a palpable hernia located in the umbilicus which measures approximately 5 cm in diameter in his reducible with light pressure. Operative findings: Reducible umbilical hernia 5 cm diameter Specimen: None Estimated blood loss: 2 mL Complications: None Procedure details: Patient was brought to the OR and placed in a supine position. After administering general anesthesia the patient's abdomen was prepped with ChloraPrep and draped in a sterile fashion. A surgical time-out was called and the consent confirmed. Patient received preoperative antibiotics and Venodyne boots were in place. Local anesthesia consisting of 0.5% Sensorcaine with epinephrine was then infiltrated in a transverse fashion at the umbilicus. A curvilinear incision was then made around the umbilicus and carried down to subcutaneous tissue and up to the hernia sac. Hernia sac was then sharply dissected down to the fascial defect. Umbilical skin was dissected off the hernia defect. The hernia sac was then reduced into the abdominal cavity. A preperitoneal space was then dissected circumferentially. A 6.4 cm round Ventralex mesh was then obtained and deployed within the preperitoneal space. This was secured in 4 quadrants using a 1 Tycron suture. Fascia was then closed using [id number] 1 Tycron sutures. Prior to complete closure of the fascia approximately 4 mL of Zenrelef was instilled below the fascia. The fascia was then completely closed with a [id number] 1 Tycron suture. Wounds were then irrigated with saline solution and suctioned dry. Umbilical skin was secured to the fascia using a 3-0 Polysorb suture. Dermis was then reapproximated using interrupted 3-0 Polysorb sutures. Skin was closed using a running subcuticular 4-0 Polysorb suture. Steri-Strips, 4 x 4 gauze and Tegaderm were then applied. The patient tolerated the procedure well. Sponge, instrument, and needle counts reported as correct. The patient was transferred to PACU in stable condition.
[2025-04-03 11:21] VITALS: BP 162/97; PULSE 80; RESP 12; TEMP 36.5; O2SAT 97
[2025-04-03 11:26] VITALS: BP 161/102; PULSE 86; RESP 15; O2SAT 96
[2025-04-03 11:31] VITALS: BP 167/99; PULSE 83; RESP 12; O2SAT 95
[2025-04-03 11:46] VITALS: BP 183/108; PULSE 73; RESP 15; O2SAT 97
[2025-04-03 12:04] VITALS: BP 174/107; PULSE 70; RESP 14; TEMP 36.6; O2SAT 96
== END 2025-04-03 13:33 | disposition home or self-care (01) ==
PROVIDERS: PCP Nurse Practitioner Primary Care; Visit Provider Surgery
PROC: (CPT 49593; principal; 2025-04-03 10:20)
DX: K42.9 Umbilical hernia without obstruction or gangrene (principal); I10 Essential (primary) hypertension; Z79.1 Long term (current) use of non-steroidal anti-inflammatories (NSAID); Z79.899 Other long term (current) drug therapy
CPT/HCPCS: 49593; C1781; J0668; J0690; J1100; J2003; J2250; J2405; J2704; J3010

== ENCOUNTER → 2025-04-03 08:38 | Outpatient (BNV) | payer OTHER, SELFPAY | PROVIDERS: PCP Nurse Practitioner Primary Care; Visit Provider Surgery | DX: K42.9 Umbilical hernia without obstruction or gangrene (principal) | CPT/HCPCS: 49593 ==

== ENCOUNTER 2025-04-10 11:31 | Outpatient (AMB) | payer OTHER, MEDICAID, SELFPAY ==
--- NOTE | 2025-04-10 11:48 | A.OFFVIS_ITS ---
Vital Signs 04/10/25 11:52 Height 5 ft 10 in Weight 215 lb 6.266 oz BMI 30.9 Pulse 72 Intake Visit Reasons: s/p umbilical hernia w/ mesh Intake Note: Patient is seen in office for post op assessment post umbilical hernia repair. Pt c/o: admits to bruising and minimal pain Reconciliation Manager Required: No Accompanied by: Self / Same As Patient Allergies bee pollen (bee stings) Allergy (Verified 04/10/25 11:58) Anaphylaxis HPI HPI s/p umbilical hernia w/ mesh: Details: Mr. Rasheed is a 54 year old male who presents for wound check and follow up. He underwent repair of reducible umbilical hernia with mesh on 04/03/[address] Spence. He tolerated the procedure well. He currently denies any pain at the repair site but does reports some discomfort after walking all day. He had some bruising after the procedure which is improving. He is tolerating a solid diet and having normal bowel movements. He is asking when he can return to work. 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 He has no other concerns. [facility] Medical History Gout Hypertension Surgical History (Updated 04/11/25 @ 14:07 by Gloria Little PA-C) History of umbilical hernia repair (04/03/25) Social History Alcohol intake: current Alcohol intake frequency: 0-2 drinks per day Patient Tobacco Use Status: Never used Tobacco Substance Use Type: Marijuana Review of Systems Const Denies chills and Denies fever(s) Card Denies chest pain and Denies dyspnea Resp Denies dyspnea GI Reports as per HPI Skin/Breast Reports as per HPI Physical Exam Vital Signs: Last Vital Signs Pulse 72 04/10/25 11:52 BMI result Body Mass Index 30.9 Const General: comfortable, no acute distress and alert Orientation/consciousness: patient oriented x3 Resp Effort & Inspection: normal respiratory effort and able to speak in complete sentences GI Other: umbilical incision- steris remain in place with old dried blood, which were removed uneventfully, incision is well approximated and healing well, no surrounding erythema, mild old ecchymosis lateral to incision on right, some mild edema proximally, no evidence of hernia recurrence abdomen soft, nontender Inspection: No distended Palpation (GI): no guarding Skin General skin exam: no rashes or lesions noted Neuro General: patient oriented x3 and moves all extremities Assessment & Plan Assessment & Plan (1) Umbilical hernia without obstruction and without gangrene: Code(s): K42.9 - Umbilical hernia without obstruction or gangrene Category: Medical (2) History of umbilical hernia repair: Onset Date: 04/03/25 Comment: Henrique Spence MD Code(s): Z98.890 - Other specified postprocedural states; Z87.19 - Personal history of other diseases of the digestive system Category: Surgical Plan 54 year old male s/p repair of reducible umbilical hernia with mesh on 04/03/25. He tolerated the procedure well and has minimal pain. His incision site is healing well without evidence of infection or hernia recurrence. He was instructed on continuing no heavy lifting or strenuous exercises for 5 more weeks. He understands and agrees with plan. He states he does not need a work note. He can follow up as needed if he develops concerns. Coding Level of Care Code Est Pt Level 3 (25657) Diagnoses Umbilical hernia without obstruction and without gangrene K42.9 History of umbilical hernia repair Z98.890; Z87.19
[2025-04-10 11:52] VITALS: PULSE 72; BMI 30.9
--- OUTSIDE RECORDS SUMMARY | 2025-04-10 14:30 | XMS_ITS | Encounter Summary ---
Author Organization [employer] Address [address] [place] [address] 7 [place] [address] Care Team Providers Care Mold Runner Name Role Phone Tatyana Cuevas Primary Care Provider [phone] Encounter Details Date Type Department Care Team (Late st Contact Info) Description 11/01/2022 Orders Only [facility] MED & PEDS [address] [place], [place] [phone] Renetta Ag LPN Social History Tobacco Use [...] Description 04/14/2025 3:00 PM EST Office Visit [facility] MEDICINE [address] [place] [address] Tatyana Cuevas ANP 230 [place] [address] documented as of this encounter Visit Diagnoses Not on filedocumented in this encounter Care Teams Mold Runner Relationship Specialty Start Date End Date Tatyana Cuevas ANP [address] [place] [address] PCP - General Family Medicine 05/19/21 documented as of this encounter
--- OUTSIDE RECORDS SUMMARY | 2025-04-10 14:30 | XMS_ITS | Encounter Summary ---
Author Organization [employer] Address 75 [facility] 7 [place] [address] Care Team Providers Care Men'S Furnishings Salesperson Name Role Phone Tatyana Cuevas Primary Care Provider [phone] Reason for Visit * Reason Onset Date Comments Appt Status 08/17/2022 Encounter Details Date Type Department Care Team ([facility] Contact Info) Description 08/17/2022 Telephone [facility] [address] [place], [place] [phone] Tatyana Cuevas ANP [address] [place] [address] Appt Status Social History Tobacco Use Types [...] over with provider. Please contact pt at [phone] documented in this encounter Plan of Treatment Upcoming Encounters Date Type Department Care Team (Late st Contact Info) Description 04/14/2025 3:00 PM EST Office Visit [facility] [address] [place] [address] Tatyana Cuevas ANP [address] [place] [address] documented as of this encounter Visit Diagnoses Not on filedocumented in this encounter Care Teams Men'S Furnishings Salesperson Relationship Specialty Start Date End Date Tatyana Cuevas ANP [address] [place] [address] PCP - General Family Medicine 05/19/21 documented as of this encounter
--- OUTSIDE RECORDS SUMMARY | 2025-04-10 14:30 | XMS_ITS | Clinical Summary ---
Author Organization [employer] Address 75 [facility] 7t [place] [address] Care Team Providers Care Carburetor Mechanic Name Role Phone Tatyana Cuevas DAHLIA Primary Care Provider [phone] Allergies Active Allergy Reactions Criticality Noted Date [...] Description 02/10/2025 2:00 PM EDT Clinical Support [address] [address] Roxanna Lomax RN Essential hypertension 02/10/2025 Travel 02/07/2025 Orders Only [facility] [address] [place] [address] Tatyana Cuevas ANP Essential hypertension (Primary Dx) 02/06/2025 1:40 PM EDT [facility] [address] [address] Kailey Lyle MD Bee sting reaction, accidental or unintentional, initial encounter (Primary Dx) 02/06/2025 Travel 02/05/2025 10:00 AM EDT Office Visit [facility] [address] [address] [place], Cherelle, NUCLEAR INSTRUCTOR Bilateral lower extremity edema (Primary Dx) 02/05/2025 Telephone [facility] [address] [place] [address] Tatyana Cuevas ANP Requested Medication Change 02/04/2025 4:00 PM EDT Office Visit [facility] [address] [address] Venkata Bales MD Essential hypertension (Primary Dx); Leg swelling 02/04/2025 Travel 01/31/2025 Telephone [facility] [address] [place] [address] Tatyana Cuevas ANP Nurse Triage 01/23/2025 2:15 PM EDT Office Visit [facility] [address] [place] [address] Tatyana Cuevas ANP Essential hypertension (Primary Dx); Bee sting reaction, accidental or unintentional, initial encounter; Hypertensive urgency; Hepatomegaly; Umbilical hernia without obstruction and without gangrene; Screening for malignant neoplasm of colon 01/23/2025 Travel 01/22/2025 Telephone [facility] [address] [place] [address] Jason Josephine [place] 01/17/2025 Telephone [facility] [address] [place] [address] Roxanna Lomax RN ER Follow-up from Last 3 Months Immunizations Immunization Administration [...] Description 04/14/2025 3:00 PM EST Office Visit [facility] [address] [place] [address] Tatyana Cuevas, ANP [address] [place] [address] Health Maintenance Due Date Last Done Comments CT Colonography 1971 Colonoscopy 1971 Colorectal Cancer Screening 1971 FIT DNA/Cologuard 1971 FIT 1971 FOBT 1971 Lipid Panel 1971 Sigmoidoscopy 1971 Hepatitis A Vaccines (1 of 2 - Risk 2-dose series) 1990 Zoster Vaccines (1 of 2) 2021 COVID-19 Vaccine (1 - 2023-2 5 season) 2025 06/11/2021, 02/17/2021 Influenza Vaccine (#1) [...] Hepatitis C Antibody NON-REACT MI NON-REACT MI [facility] Index 0.05 <1.00 [employer] [facility] Comment: HCV antibody was non-reactive. There is no laboratory evidence of HCV infection. In most cases, no further action is required. However, if recent HCV exposure is suspected, a test for HCV RNA (test code 66427) is suggested. For additional information please refer to http://MoFuse.Inbox/faq/TEF87y3 (This link is being provided for informational/ educational purposes only.) Blood Venous blood specimen / Unknown 08/26/2022 3:22 PM EDT 08/26/2022 3:22 PM EDT Narrative [facility] - 09/01/2022 9:59 PM EDT FASTING:UNKNOWN FASTING: UNKNOWN us Cl Peguero MD LAB BLOOD ORDERABLES Final Resul t [facility] [address], [place] [address] [employer] [facility] [address] [place] [address] * HIV-1/2 Antigen and Antibodies, Fourth Generation, with Reflexes (08/26/2022 3:22 PM EDT) Pathologist [facility] HIV Antigen/Antibody, 4th Generation NON-REAC TIVE NON-REAC TIVE [employer] [facility] [employer] Comment: HIV-1 antigen and HIV-1/HIV-2 antibodies were [...] purpose. For additional information please refer to http://education.Inbox/faq/OEO315 (This link is being provided for informational/ educational purposes only.) The performance of this assay has not been clinically validated in patients less than 2 years old. Blood Venous blood specimen / Unknown 08/26/2022 3:22 PM EDT 08/26/2022 3:22 PM EDT Narrative [facility] - 09/01/2022 9:59 PM EDT FASTING:UNKNOWN FASTING: UNKNOWN us Cl Peguero MD LAB BLOOD ORDERABLES Final Resul t [facility] [address], [place] [address] [employer] [facility] [address] [place] [address] from Last 3 Months or Most Recently Relevant to Health Maintenance Insurance [employer] Care Teams Carburetor Mechanic Relationship Specialty Start Date End Date Tatyana Cuevas ANP [address] [place] [address] PCP - General Family Medicine 05/19/21
== END 2025-04-10 12:06 | disposition home or self-care (01) ==
LOC: HO.HGS 11:31
PROVIDERS: PCP Nurse Practitioner Primary Care; Visit Provider Physician Assistant Surgical
DX: K42.9 Umbilical hernia without obstruction or gangrene (principal); Z98.890 Other specified postprocedural states; Z87.19 Personal history of other diseases of the digestive system
CPT/HCPCS: 99213

== ENCOUNTER 2025-04-21 15:29 | Outpatient (REF) | payer MEDICAID, SELFPAY ==
[2025-04-21 16:48] LABS: Microalbum/Creatinine Ratio Ur 19.6 ug/mg cr (<30)
[2025-04-21 16:58] LABS: Alanine Aminotransferase 106 U/L (0-40); Albumin Level 4.5 g/dL (3.5-5.0); Alkaline Phosphatase 75 U/L (39-117); Anion Gap 15 (12-20); Aspartate Amino Transferase 90 U/L (5-37); Blood Urea Nitrogen 19 mg/dL (9-16); Calcium 9.4 mg/dL (8.4-10.2); Carbon Dioxide 24 mmol/L (22-29); Chloride 103 mmol/L (96-108); Cholesterol 241 mg/dL (<200); Estimated Glomerular Filt Rate > 60; HDL Cholesterol 40 mg/dL (>40); Potassium 3.9 mmol/L (3.3-5.1); Sodium 138 mmol/L (135-145); Total Protein 8.6 g/dL (6.5-8.0); Triglycerides 295 mg/dL (<150); Uric Acid 7.2 mg/dL (3.4-7.0)
== END 2025-04-21 15:30 | disposition home or self-care (01) ==
LOC: HO.HHCL 15:29
PROVIDERS: PCP Nurse Practitioner Primary Care; Visit Provider Nurse Practitioner Primary Care
DX: Z13.220 Encounter for screening for lipoid disorders (principal); Z13.1 Encounter for screening for diabetes mellitus; I10 Essential (primary) hypertension; M25.473 Effusion, unspecified ankle; R79.89 Other specified abnormal findings of blood chemistry
CPT/HCPCS: 36415; 80048; 80061; 80076; 82043; 82570; 83036; 84550

== ENCOUNTER 2025-05-17 13:01 | Emergency (ER) | payer MEDICAID, SELFPAY ==
--- NOTE | ~2025-05-17 | XR_ITS ---
CLINICAL HISTORY: chest pain 2 view chest x-ray. Comparison: None Findings: No consolidation or effusion. Cardiac and mediastinal contours are unremarkable. Bones unremarkable. Impression: 1. No acute pulmonary disease. This document has been electronically signed by: Thaddeus Stovall MD on 05/17/2025 15:08:11
--- NOTE | 2025-05-17 13:08 | ECG_ITS ---
Test Reason : CP Blood Pressure : */* mmHG Vent. Rate : 63 BPM Atrial Rate : 63 BPM P-R Int : 166 ms QRS Dur : 114 ms QT Int : 424 ms P-R-T Axes : 60 -24 71 degrees QTcB Int : 433 ms Normal sinus rhythm Minimal voltage criteria for LVH, may be normal variant ( Hamilton product ) Inferior infarct (cited on or before 08-Aug-2024) Possible Anterior infarct , age undetermined Abnormal ECG When compared with ECG of 08-Aug-2024 08:08, No significant change was found Referred By: Generic ED Physician Electronically Signed By: PAKO DSOUZA MD
[2025-05-17 13:20] VITALS: BP 129/77; PULSE 63; RESP 14; TEMP 36.7; O2SAT 95
[2025-05-17 13:26] VITALS: BP 132/89; BP 158/107; PULSE 63; PULSE 77; RESP 18; TEMP 36.7; O2SAT 96; BMI 32.9
--- NOTE | 2025-05-17 13:32 | ED_ITS ---
HPI - Chest Pain General Chief Complaint: Chest Pain Stated Complaint: CP PER EMS (UNREADABLE CMED) Time Seen by Provider: 05/17/25 13:31 Source: patient, family (Daughter at bedside collaborating history), EMS, RN notes reviewed and old records reviewed Mode of arrival: EMS Limitations: no limitations History of Present Illness ED Provider: DARRYL Abdi HPI narrative: 54-year-old male with medical history of gout, HTN, presents to the ED due to sudden onset left-sided chest pain. Patient states he woke up this morning feeling fine, went to make breakfast when he noticed a sudden onset sharp stabbing pain of L side of the chest that is worse with deep inspiration. Patient reports he went to lay down but had a difficult time walking due to chest pain and pain persisted promting him to call 911. The episode of chest pain was not associated with nausea, vomiting, diaphoresis, syncope, or dizziness. Patient states he has history of alcohol use disorder throughout his life drinking several 22oz beers daily but has been trying to stop drinking over the last month. Patient states he has started a new job and to celebrate, he stopped at a package store on the way home and bought a 22oz beer that he drank last night. Patient denies history of alcohol withdrawal. Patient denies withdrawal symptoms today. Related Data Previous Rx's ?Medication ?Instructions ?Recorded naproxen 500 mg tablet 500 mg PO BID PRN pain #14 t abs 08/08/24 hydrochlorothiazide 25 mg tablet 25 mg PO DAILY #30 ta bs 01/16/25 oxycodone 5 mg tablet 5 mg PO Q6H PRN pain (scale score 04/03/25 7-10) #15 tabs Allergies Allergy/AdvReac Type Severity Reaction Status Date / Time bee pollen (bee stings) Allergy Anaphylaxis Verified 05/17/25 13:30 Review of Systems 2 Review of Systems: Yes all other systems are reviewed and are negative PMFSH Past Medical History Attestation statement: The following information was validated with the patient. Source: old records reviewed and nursing notes reviewed Medical History Gout Hypertension Surgical History History of umbilical hernia repair (10/30/25) Social History Social History Alcohol intake: current Alcohol intake frequency: 0-2 drinks per day Patient Tobacco Use Status: Never used Tobacco Smoked in Last 30 Days: No Use of substances other than those prescribed or required for medical reasons: Yes Substance Use Type: Marijuana Advance Directives: No Advance Directives Information Provided: No Physical Exam 2 Vital Signs: Vital Signs: Last Vital Signs Temp 98.1 F 05/17/25 13:26 Pulse 63 05/17/25 13:26 Resp 18 05/17/25 13:26 BP 132/89 05/17/25 13:26 Pulse Ox 96 05/17/25 13:26 O2 Del Method Room Air 05/17/25 13:26 BMI result Body Mass Index 32.9 GENERAL APPEARANCE: ?AxOx4, generally well-appearing, no acute distress. HEENT: ?NC, AT. MMM. EOMI, clear conjunctiva, oropharynx clear. NECK: ?Supple without lymphadenopathy.? No stiffness or restricted ROM. HEART:? Normal rate and regular rhythm, normal S1/S2, no m/r/g LUNGS:? CTAB, moving air well. No crackles or wheezes are heard. ABDOMEN: ?Soft, nontender, nondistended BACK: No CVAT, no obvious deformity. EXTREMITIES: ?Without cyanosis, clubbing or edema. NEUROLOGICAL: ?Grossly nonfocal. Alert and oriented, moving all 4 extremities. Skin: ?Warm and dry without any rash. Medical Decision Making Medical Decision Making MDM Narrative: 54-year-old male with medical history of gout, HTN, presents to the ED due to sudden onset left-sided chest pain. Patient states he woke up this morning feeling fine, went to make breakfast when he noticed a sudden onset sharp stabbing pain of L side of the chest that is worse with deep inspiration that persisted even after lying down. Patient has history of AUD and has tried to stop drinking over the past 6 weeks. Patient drank 1 22oz beer last night. Denies history of alcohol withdrawal admission. Denies withdrawal symptoms today. Patient with history of plantar fasciitis pain, with pain today and palpable areas of muscle tension of B/L arches. VS on initial observation-BP 129/77, pulse rate of 63, respiratory rate of 14, afebrile with oral temp of 98.1, O2 saturation 95 percent on room air. Physical exam patient is well appearing, non toxic appearing, no acute distress. Lungs clear to auscultation bilaterally without wheezing, rales or ronchi, Cardiac exam with normal rate and rhythm without m/r/g, abdomen is soft, non distended, non tender, lower extremities without pitting edema, no calf tenderness Plan: Labs, EKG, CXR, EKG reveals normal sinus rhythm with nonspecific T-wave abnormalities in AVR, V1, and V2, no ST elevation/depression, troponin x2 <2.7, chest pain is relieved. Labs without leukocytosis/leukopenia, no left shift, H&H stable, mild transaminitis with AST of 51, ALT of 72 however patient has history of alcohol use, no electrolyte abnormalities, BNP WNL 135.9, Dimer negative <150 Patient with sudden onset sharp stabbing mid sternal chest pain that started while he was making breakfast and radiated down L arm and was worse with deep inspiration. Patient has been in the department for 5 hours and chest pain has resolved while in the department. This chest pain was not associated with nausea, diaphoresis, syncope, lightheadedness or dizziness. Cardiac markers x2 negative, D-dimer negative at <150, ACS and PE less likely. Patient without increased physical activity. I am not sure what caused his sudden onset chest pain, however overall workup is reassuring. Patient with history of plantar fasciitis that has not changed in quality or intensity, DP pulses 2+, the feet are neurovascularly intact and well perfused with full ROM intact. Will provide follow up with cardiology and podiatry for further evaluation and management of the patient's symptoms. Patient feels well enough to go home for self-care today. Patient and his daughter in agreement of the plan. Differential Diagnosis Differential Diagnoses: The differential diagnosis associated with the presentation includes ACS Angina PE Dysrhythmia Electrolyte abnormality Plantar fasciitis Atypical chest pain Admission/Observation Consideration of admission/observation: Escalation of care including admission/observation considered Lab Data MDM Lab Attestation statement: I reviewed the patient's lab results. 05/17/25 14:44 05/17/25 14:44 Labs: Lab Results 05/17/25 05/17/25 Range/Units 14:44 17:03 WBC 5.3 (4.8-10.8) X10*3/uL RBC 4.69 (4.60-5.80) X10*6/uL Hgb 15.2 (14.0-18.0) g/dl Hct 41.7 L (42.0-52.0) % MCV 88.9 (80.0-98.0) fL MCH 32.4 (27.0-33.0) pg MCHC 36.5 H (31.0-36.0) g/dl RDW 11.1 (11.0-16.0) % Plt Count 162 (160-400) X10*3/uL MPV 10.7 (9.4-12.4) fL Immature Gran % (Auto) 0.4 (0.0-0.4) % Neut % (Auto) 46.7 (45-73) % Lymph % (Auto) 33.6 (20-40) % [place] % (Auto) 10.8 (2-11) % Eos % (Auto) 7.4 H (0-4) % Baso % (Auto) 1.1 (0-2) % Lymph # (Auto) 1.8 (1.2-4.9) X10*3/uL [place] # (Auto) 0.6 (0.1-1.2) X10*3/uL Eos # (Auto) 0.4 (0.0-0.4) X10*3/uL Baso # (Auto) 0.1 (0.0-0.2) X10*3/uL Abs Immat Gran (auto) 0.02 (0.00-0.03) X10*3/uL Absolute Neuts (auto) 2.5 (2.0-8.3) x10*3/uL Absolute Nucleated RBC 0.000 (0.0-0.012) X10*3/uL Nucleated RBC % (auto) 0.0 (0.0-0.2) /100WBC D-Dimer High Sensitivty < 150 NG/ML Sodium 141 (135-145) mmol/L Potassium 3.8 (3.3-5.1) mmol/L Chloride 105 (96-108) mmol/L Carbon Dioxide 26 (22-29) mmol/L Anion Gap 14 (12-20) BUN 14 (9-16) mg/dL Creatinine 1.19 (0.5-1.4) mg/dL Estim Creat Clear Calc 81.5 Estimated GFR > 60 Random Glucose 109 (60-115) mg/dL Calcium 9.5 (8.4-10.2) mg/dL Magnesium 1.6 (1.6-2.6) mg/dL Total Bilirubin 0.7 (0.0-1.0) mg/dL AST 51 H (5-37) U/L ALT 72 H (0-40) U/L Alkaline Phosphatase 71 (39-117) U/L Troponin I High Sens < 2.7 < 2.7 (<3.5-35.0) ng/L NT-Pro-B Natriuret Pep 135.9 (<300) pg/mL Total Protein 8.3 H (6.5-8.0) g/dL Albumin 4.6 (3.5-5.0) g/dL Independent Interpretation I performed an independent interpretation of an: EKG and Plain X-Ray Interpretation: EKG reveals normal sinus rhythm with nonspecific T-wave abnormalities and AVR, V1, V2, no ST-elevation/depression, lengthened QT Vent. Rate : 63 BPM Atrial Rate : 63 BPM P-R Int : 166 ms QRS Dur : 114 ms QT Int : 424 ms P-R-T Axes : 60 -24 71 degrees QTcB Int : 433 ms Normal sinus rhythm Minimal voltage criteria for LVH, may be normal variant ( Heron product ) Inferior infarct (cited on or before 08-Aug-2024) Possible Anterior infarct , age undetermined Abnormal ECG When compared with ECG of 08-Aug-2024 08:08, No significant change was found I personally interpreted the CXR which was negative for pneumothorax, pleural effusion, pulmonary edema, infiltrates, consolidation, cardiomegaly, I agree with the radiologist's interpretation Radiology Impression Discussion of test interpretation with radiology: I have reviewed the radiologist's reading. Radiologist Impression: CXR Vent. Rate : 63 BPM Atrial Rate : 63 BPM P-R Int : 166 ms QRS Dur : 114 ms QT Int : 424 ms P-R-T Axes : 60 -24 71 degrees QTcB Int : 433 ms Normal sinus rhythm Minimal voltage criteria for LVH, may be normal variant ( Heron product ) Inferior infarct (cited on or before 08-Aug-2024) Possible Anterior infarct , age undetermined Abnormal ECG When compared with ECG of 08-Aug-2024 08:08, No significant change was found Independent Historian Clinical information obtained from an independent historian. History obtained from or confirmed by: Other (Daughter at bedside corroborating history) External Record Review External record reviewed: Inpatient record, Office record, Outpatient record and Prior outpatient labs Chronic Conditions Patient?s care impacted by: Hypertension and Other (HLD) Discharge Plan Discharge Clinical Impression: Atypical chest pain, Bilateral plantar fasciitis Patient Disposition: Home, Self-Care Additional Instructions: You were evaluated in the emergency department today due to chest pain, bilateral feet pain. Your workup was reassuring as your EKG did not show any emergent cardiac pattern, your chest x-ray was normal, and your troponins which are protein that the heart gives off when under stress, damage, or under active heart attack were negative today at <2.7, your lab for blood clots (D-dimer) was also negative. I am placing a referral to [facility] Cardiology, and [facility] Podiatry. Please call their office as Monday to become established with them as they will not call you. I also urge you to contact your primary care doctor as they will be able to help you follow up with these issues and can help with long-term management as well. Please return to the emergency department if your chest pain returns, shortness of breath, nausea, vomiting, lightheadedness or any new/worsening/concerning symptoms. Prescriptions: No Action hydrochlorothiazide 25 mg tablet 25 mg PO DAILY Qty: 30 2RF oxycodone 5 mg tablet 5 mg PO Q6H PRN (Reason: pain (scale score 7-10)) Qty: 15 0RF Rx Instructions: Partial Fill upon patient request. naproxen 500 mg tablet 500 mg PO BID PRN (Reason: pain) Qty: 14 0RF Referrals: [facility] Cardi[facility] Specialists [Provider Group] Devin Camacho DPM [Rn Concurrent Review, Podiatry] Print Language: Hungarian
--- OUTSIDE RECORDS SUMMARY | 2025-05-17 14:26 | XMS_ITS | Encounter Summary ---
Author Organization [employer] Address [address] [facility] [address] [place] [address] Care Team Providers Care Business Division Chair Name Role Phone Tatyana Cuevas DAHLIA Primary Care Provider [phone] Encounter Details Date Type Department Care Team (Late st Contact Info) Description 11/01/2022 Orders Only [facility]ED[facility] [address] [place], [place] [phone] Renetta Ag LPN Social History Tobacco Use [...] Care Team (Late st Contact Info) Description 07/02/2025 9:00 AM EST Office Visit [facility] MEDICINE [address] [place], [place] [phone] Cl Peguero MD [address] [place] [address] 09/24/2025 11:00 AM EDT Office Visit [facility] OPTOMETRY [address] [place], [place] [phone] Anahi Cuenca OD [address] [place] [address] documented as of this encounter Visit Diagnoses Not on filedocumented in this encounter Care Teams Business Division Chair Relationship Specialty Start Date End Date Tatyana Cuevas ANP [address] [place] [address] PCP - General Family Medicine 05/19/21 documented as of this encounter
--- OUTSIDE RECORDS SUMMARY | 2025-05-17 14:26 | XMS_ITS | Encounter Summary ---
Author Organization [employer] Address [address] [facility] [address] [place] [address] Care Team Providers Care Hydrogen Plant Operations Manager Name Role Phone Tatyana Cuevas Primary Care Provider [phone] Encounter Details Date Type Department Care Team ([facility] st Contact Info) Description 04/21/2025 Results Follow-Up [facility] MEDICINE [address] [place], [place] [phone] Tatyana Cuevas, ANP [address] [place] [address] Albumin, Random Urine W/Creatinine, Basic Metabolic Panel, Lipid Panel, Standard, Additional followed-up results: 2 Social History Tobacco Use Types Packs/Day Years [...] as of this encounter Miscellaneous Notes * Result Encounter Note - DAHLIA Dorantes - 04/21/2025 5:26 PM EST Reviewed results w/ pt by phone documented in this encounter Plan of Treatment Upcoming Encounters Date Type Department Care Team (Late st Contact Info) Description 07/02/2025 9:00 AM EST Office Visit [facility] MEDICINE [address] [place] [address] Cl Peguero MD [address] [place] [address] 09/24/2025 11:00 AM EDT Office Visit [facility] OPTOMETRY [address] [place] [address] Anahi Cuenca, OD [address] [place] [address] documented as of this encounter Visit Diagnoses Not on filedocumented in this encounter Additional Health Concerns Assessment Noted Time PHQ-9 Depression Total Score: 12 025 11:50 AM EDT documented as of this encounter Care Teams Hydrogen Plant Operations Manager Relationship Specialty Start Date End Date Tatyana Cuevas ANP [address] [place] [address] PCP - General Family Medicine 05/19/21 documented as of this encounter
--- OUTSIDE RECORDS SUMMARY | 2025-05-17 14:26 | XMS_ITS | Encounter Summary ---
Author Organization [employer] Address [address] [facility] [address] [place] [address] Care Team Providers Care Engineering Project Manager Name Role Phone Tatyana Cuevas Primary Care Provider [phone] Reason for Visit * Reason Onset Date Comments Appt Status 08/17/2022 Encounter Details Date Type Department Care Team ([facility] st Contact Info) Description 08/17/2022 Telephone [facility] MEDICINE [address] [place], [place] [phone] Tatyana Cuevas ANP [address] [place] [address] Appt Status Social History Tobacco Use Types [...] over with provider. Please contact pt at [phone] documented in this encounter Plan of Treatment Upcoming Encounters Date Type Department Care Team (Late st Contact Info) Description 07/02/2025 9:00 AM EST Office Visit [facility] MEDICINE [address] [place] [address] Cl Peguero MD [address] [place] [address] 09/24/2025 11:00 AM EDT Office Visit [facility] OPTOMETRY [address] [place], [place] [phone] Anahi Cuenca OD [address] [place] [address] documented as of this encounter Visit Diagnoses Not on filedocumented in this encounter Care Teams Engineering Project Manager Relationship Specialty Start Date End Date Tatyana Cuevas ANP [address] [place] [address] PCP - General Family Medicine 05/19/21 documented as of this encounter
--- OUTSIDE RECORDS SUMMARY | 2025-05-17 14:26 | XMS_ITS | Clinical Summary ---
Author Organization [employer] Address [address] [facility] [address] [place] [address] Care Team Providers Care Medical Laboratory Manager Name Role Phone Mason Tatyana VILLAGOMEZ Primary Care Provider [phone] Allergies Active Allergy Reactions Criticality Noted Date Comments Honey Bee Venom 01/16/2023 Medications * This document contains information received from the source organization and may not represent a complete record from that organization. senna (Senokot) 8.6 MG tablet TAKE 2 TABLETS BY MOUTH EVERY DAY 180 tablet 1 3 Active folic acid (Folvite) 1 MG tabletIndication s:Alcohol use disorder Take 1 tablet (1 mg) by mouth Once per day. 90 tablet 3 5 09/25/19 26 Active thiamine (Vitamin B-1) 100 MG tabletIndication s:Alcohol use disorder Take 1 tablet (100 mg) by mouth Once per day. 90 tablet 3 5 09/25/19 26 Active Blood Pressure kitIndications:H ypertensive urgency 1 each 2 times daily. 1 kit 5 09/25/19 26 Active ketoconazole (NIZOral) 2 % creamIndications :Rash Apply topically 2 times daily. 60 g 5 Active EPINEPHrine (Epipen) 0.3 MG/0.3ML injection syringeIndicatio ns:Bee sting reaction, accidental or unintentional, initial encounter Inject 0.3 mL (0.3 mg) as directed 1 (one) time for 1 dose. use as directed for allergic reaction and then call 911 2 each 1 5 Active hydroCHLOROthiaz yoana (HYDRODiuril) 25 MG tabletIndication s:Essential hypertension Take 1 tablet (25 mg) by mouth Once per day. 90 tablet 3 5 02/05/20 26 Active cetirizine (ZyrTEC) 10 MG tabletIndication s:Bee sting reaction, accidental or unintentional, initial encounter Take 1 tablet (10 mg) by mouth Once per day. 90 tablet 1 5 Active predniSONE (Deltasone) 20 MG tabletIndication s:Bee sting reaction, accidental or unintentional, initial encounter 2 tabs po daily for 5 days 10 tablet 5 Active colchicine 0.6 MG tabletIndication s:Acute ankle pain, unspecified laterality Take 2 tabs once day one, then 1 tab twice daily for 5-10 days or until flare has resolved for 2 days 28 tablet 04/22/2025 12:04 PM EST 5 Active verapamil SR (Calan SR) 120 MG ER tabletIndication s:Essential hypertension Take 1 tablet (120 mg) by mouth in the morning. Do not crush or chew. 90 tablet 3 04/22/2025 12:04 PM EST 5 04/21/20 26 Active naltrexone (Depade) 50 MG tabletIndication s:Alcohol use disorder, severe, dependence (CMS/HCC) (HCC) Take 1 tablet (50 mg) by mouth Once per day. 30 tablet 2 04/28/2025 12:36 PM EST 5 07/24/19 26 Active ibuprofen 600 MG tabletIndication s:Bee sting reaction, accidental or unintentional, initial encounter Take 1 tablet (600 mg) by mouth 3 times daily. 90 tablet 1 3 04/21/20 25 Discontin ued(Thera py completed ) Active Problems Problem Noted Date Diagnosed Date Essential hypertension 01/16/2023 Encounters Date Type Department Care Team Description 05/14/2025 Telephone [facility] MEDICINE [address] [place] [phone] Tatyana Cuevas ANP chart prep 05/09/2025 1:15 PM EST Telemedicine [facility] MEDICINE [address] [place] [address] Cl Peguero MD Alcohol use disorder, severe, dependence (CMS/HCC) (HCC) (Primary Dx) 05/09/2025 Travel 05/07/2025 Population Health Risk Score [facility] () Department [address] [place] [phone] Provider, Population Health Generic 05/07/2025 Telephone [facility] OPTOMETRY [address] [place] [address] Anahi Cuenca OD 04/25/2025 1:45 PM EST Office Visit [facility] MEDICINE [address] [place] [address] Cl Peguero MD Alcohol use disorder, severe, dependence (CMS/HCC) (HCC) (Primary Dx) 04/25/2025 Travel 04/22/2025 Travel 04/21/2025 Orders Only [facility] MEDICINE [address] [place] [address] Tatyana Cuevas ANP 04/21/2025 Results Follow-Up [address] [address] Tatyana Cuevas ANP Albumin, Random Urine W/Creatinine, Basic Metabolic Panel, Lipid Panel, Standard, Additional followed-up results: 2 04/21/2025 Orders Only [facility] MEDICINE [address] [place] [address] Tatyana Cuevas ANP Elevated hemoglobin A1c (Primary Dx); Essential hypertension 04/21/2025 Orders Only [facility] [address] [place] [address] Tatyana Cuevas ANP Ankle swelling, unspecified laterality (Primary Dx) 04/21/2025 Telephone [facility] [address] [place] [address] Tatyana Cuevas ANP Nurse Triage 04/11/2025 Telephone [facility] [address] [place] [address] Tatyana Cuevas ANP chart prep from Last 3 Months Immunizations Immunization Administration Dates Next Due Hep B, adult 09/24/2024,12/22/2016,11/22/2016 Pneumococcal Conjugate PCV 20 09/24/2024 Tdap 10/23/2021,11/17/2016 Social History Tobacco Use Types Packs/Day Years [...] Sign Reading Time Taken Comments Blood Pressure 146/99 04/25/2025 1:33 PM EST Pulse 80 04/25/2025 1:33 PM EST Temperature 36.6 C (97.8 F) 04/25/2025 1:33 PM EST Respiratory Rate 20 04/25/2025 1:33 PM EST Oxygen Saturation 97% 02/10/2025 2:41 PM EDT Inhaled Oxygen Concentration - - Weight 95.8 kg (211 lb 3.2 oz) 02/06/2025 1:24 P M EDT Height 177.8 cm (5' 10 ) 02/06/2025 1:24 PM EDT Body Mass Index 30.3 02/06/2025 1:24 PM EDT Plan of Treatment Upcoming Encounters Date Type Department Care Team (Late st Contact Info) Description 07/02/2025 9:00 AM EST Office Visit [facility] MEDICINE [address] [place] [address] Cl Peguero MD [address] [place] [address] 09/24/2025 11:00 AM EDT Office Visit [facility] OPTOMETRY [address] [place], [place] [phone] Anahi Cuenca, OD [address] [place] [address] Health Maintenance Due Date Last Done Comments CT Colonography 1971 Colonoscopy 1971 Colorectal Cancer Screening 1971 FIT DNA/Cologuard 1971 FIT 1971 FOBT 1971 Sigmoidoscopy 1971 Hepatitis A Vaccines (1 of 2 - Risk 2-dose series) 1990 RSV Patients and Patients Aged 60 years or older (1 - Risk 50-74 years 1-dose series) 2021 Zoster Vaccines (1 of 2) 2021 Influenza Vaccine (#1) 2025 Depression Monitoring 03/26/2025 09/24/2024 , 09/24/2024 Alcohol/Substance Use Screening 09/24/2025 09/24/2024 Disability Screening 09/24/2025 09/24/2024 SDOH Screening 09/24/2025 09/24/2024 Tobacco Screening 04/21/2026 04/21/2025 Lipid Panel 04/21/2030 04/21/2025 DTaP/Tdap/Td Vaccines (3 - T d or Tdap) 10/24/2031 10/23/2021, 11/17/2016 HIV Screening Completed 08/26/2022 Hepatitis C Screening Completed 08/26/2022 Hepatitis B Vaccines Completed 09/24/2024, 12/22/2016, 11/22/2016 Pneumococcal Vaccine: 50+ Years Completed 09/24/2024 COVID-19 Vaccine Completed 04/22/2025, 06/11/2021, 02/17/2021 HIB Vaccines Aged Out No longer eligi [...] Procedure Name Priority Date/Time Associated Diagnosis Comments POCT ALCOHOL BREATH TEST Routine 04/25/2025 1:34 PM EST Alcohol use disorder, severe, dependence (CMS/HCC) (HCC) URIC ACID Routine 04/21/2025 3:35 PM EST Ankle swelling, unspecified laterality HEPATIC FUNCTION PANEL Routine 04/21/2025 3:35 PM EST Elevated LFTs HEMOGLOBIN A1C Routine 04/21/2025 3:35 PM EST Diabetes mellitus screening LIPID PANEL, STANDARD Routine 04/21/2025 3:35 PM EST Lipid screening BASIC METABOLIC PANEL Routine 04/21/2025 3:35 PM EST Essential hypertension ALBUMIN, RANDOM URINE W/CREATININE Routine 04/21/2025 3:35 PM EST Essential hypertension HEPATITIS C AB W/REFL TO HCV RNA, QN, PCR Routine 08/26/2022 3:22 PM EDT Alcohol use disorder, severe, dependence (CMS/HCC) HIV 1/2 ANTIGEN/ANTIBODY, FOURTH GENERATION W/RFL Routine 08/26/2022 3:22 PM EDT Alcohol use disorder, severe, dependence (CMS/HCC) from Last 3 Months or Most Recently Relevant to Health Maintenance Results * POCT alcohol breath test manually resulted (04/25/2025 1:34 PM EST) Breath Alcohol 0.00 Breath 04/25/2025 1:34 PM EST Cl Peguero MD POINT OF CARE TEST ENTER/EDIT OR DERABLES Final Result * Albumin, Random Urine W/Creatinine (04/21/2025 3:35 PM EST) Creatinine, Urine 346.06 mg/dL [facility] Microalbumin Urine 68.0 mg/L [facility] Microalbum Creatinine Ratio Ur 19.6 <30 ug/mg cr [facility] Comment:Albumin/Creatinine R atio Reference Ranges: Normal: < 30 ug/mg creatinine Microalbuminuria: 30 - 300 ug/mg creatinineClinical Albuminuria: > 300 ug/mg creatinine Urine 04/21/2025 3:35 PM EST 04/21/2025 4:06 PM EST Tatyana Cuevas ANP LAB URINE ORDERABLES Final Resul t Performing Organization Address City[facility]/ZIP Co de Phone Number [facility] [address] [place] [phone] * (ABNORMAL) Uric acid (04/21/2025 3:35 PM EST) Uric Acid 7.2(H) 3.4 - 7.0 mg/dL [facility] Blood Venous blood specimen / Unknown 04/21/2025 3:35 PM EST 04/21/2025 4:06 PM EST Tatyana Cuevas ANP LAB BLOOD ORDERABLES Final Resul t Performing Organization Address [facility]/ZIP Co de Phone Number [facility] [address] [place] [phone] * (ABNORMAL) Hemoglobin A1c (04/21/2025 3:35 PM EST) Hemoglobin A1c 7.2(H) <6.0 % [facility] Comment:Hemoglobin A1C Refer ence Range Adults: 4.8 - 6.0 % Non diabetic: < 6.0 % Goal: < 7.0 %Additional Action Suggested: > 8.0 %Note: Hemoglobin A1c results are invalid for patients with abnormal amounts of HbF. Blood transfusions may impact the HbA1c concentration in the patient sample. Estimated Average Glucose 160 mg/dL [facility] Comment:eAG = Estimated ave rage glucose which is %A1C expressed asaverage glucose, using the formula of the P2W-GihrrhjHoyhvdl Glucose study (ADAG), Diabetes Care, Vol.31,#8,Jan. 2007 Blood Venous blood specimen / Unknown 04/21/2025 3:35 PM EST 04/21/2025 4:06 PM EST [facility] LAB BLOOD ORDERABLES Final Resul t [facility] [address] [place] [phone] * (ABNORMAL) Hepatic Function Panel (04/21/2025 3:35 PM EST) Bilirubin, Total 1.2(H) 0.0 - 1.0 mg/dL [facility] Bilirubin, Direct 0.4 0.0 - 0.5 mg/dL [facility] Aspartate Amino Transferase 90(H) 5 - 37 U/L [facility] Alanine Aminotransferase 106(H) 0 - 40 U/L [facility] Total Protein 8.6(H) 6.5 - 8.0 g/dL [facility] Albumin Level 4.5 3.5 - 5.0 g/dL [facility] Alkaline Phosphatase 75 39 - 117 U/L [facility] Blood Venous blood specimen / Unknown 04/21/2025 3:35 PM EST 04/21/2025 4:06 PM EST Tatyana Cuevas ANP LAB BLOOD ORDERABLES Final Resul t Performing Organization Address City[facility]/ZIP Co de Phone Number [facility] [address] [place] [phone] * (ABNORMAL) Lipid Panel, Standard (04/21/2025 3:35 PM EST) Triglycerides 295(H) <150 mg/dL [facility] Comment:Desirable Triglyceri de: less than 150 mg/dLBorderline High Triglyceride 150-199 mg/dLHigh Triglyceride: 200-499 mg/dLVery High Triglyceride: greater than or equal to 5OO mg/dL Cholesterol 241(H) <200 mg/dL [facility] Comment:Desirable Cholestero l: less than 200 mg/dLBorderline High Cholesterol: 200-239 mg/dLHigh Cholesterol: greater than 239 mg/dL LDL Cholesterol Calculated 142(H) <100 mg/dL [facility] Comment:Desirable LDL: less than 100 mg/dLNear Optimal/Above Optimal LDL: 110- 129 mg/dLBorderline High LDL: 130-159 mg/dLHigh LDL: 160-189 mg/dLVery High LDL: greater than or equal to 190 mg/dL HDL Cholesterol 40(L) >40 mg/dL [facility] Comment:Desirable HDL: great er than 40 mg/dL Note: This HDL assay may give artificially low results in patients with liver disease. Blood Venous blood specimen / Unknown 04/21/2025 3:35 PM EST 04/21/2025 4:06 PM EST us Tatyana Cuevas ANP LAB BLOOD ORDERABLES Final Resul t Performing Organization Address [facility]/ZIP Co de Phone Number [facility] [address] [place] [phone] * (ABNORMAL) Basic Metabolic Panel (04/21/2025 3:35 PM EST) Sodium 138 135 - 145 mmol/L [facility] Potassium 3.9 3.3 - 5.1 mmol/L [facility] Chloride 103 96 - 108 mmol/L [facility] Carbon Dioxide 24 22 - 29 mmol/L [facility] Anion Gap 15 12 - 20 [facility] Urea Nitrogen (BUN) 19(H) 9 - 16 mg/dL [facility] Creatinine, Serum 1.16 0.5 - 1.4 mg/dL [facility] Estimated Glomerular Filt Rate >60 [facility] Comment:Chronic Kidney Disea se: Estimated GFR < 60 mL/min/[id number] Kidney Disease: Estimated GFR < 15 mL/min/1.73m2 Glucose 192(H) 60 - 115 mg/dL [facility] Calcium 9.4 8.4 - 10.2 mg/dL [facility] Blood Venous blood specimen / Unknown 04/21/2025 3:35 PM EST 04/21/2025 4:06 PM EST [facility] LAB BLOOD ORDERABLES Final Resul t [facility] [address] [place] [phone] * Hepatitis C Antibody with Reflex to HCV, RNA, Quantitative, Real-Time PCR (08/26/2022 3:22 PM EDT) Hepatitis C Antibody NON-REACT MI NON-REACT MI [facility] [place] [facility] Index 0.05 <1.00 [facility] [place] [facility] Comment: HCV antibody was non-reactive. There is no laboratory evidence of HCV infection. In most cases, no further action is required. However, if recent HCV exposure is suspected, a test for HCV RNA (test code 06505) is suggested. For additional information please refer to http://education.[employer]/faq/ZQU48c7 (This link is being provided for informational/ educational purposes only.) Blood Venous blood specimen / Unknown 08/26/2022 3:22 PM EDT 08/26/2022 3:22 PM EDT Narrative [facility] - 09/01/2022 9:59 PM EDT FASTING:UNKNOWN FASTING: UNKNOWN Cl Peguero MD LAB BLOOD ORDERABLES Final Resul t [facility] [address], [place] [phone] [facility] [place] [facility] [address] [place] [phone] * HIV-1/2 Antigen and Antibodies, Fourth Generation, with Reflexes (08/26/2022 3:22 PM EDT) [facility] HIV Antigen/Antibody, 4th Generation NON-REAC TIVE NON-REAC TIVE [facility] [place] [facility] Comment: HIV-1 antigen and HIV-1/HIV-2 antibodies [...] purpose. For additional information please refer to http://education.[employer] [place].[employer]/faq/HWZ754 (This link is being provided for informational/ educational purposes only.) The performance of this assay has not been clinically validated in patients less than 2 years old. Blood Venous blood specimen / Unknown 08/26/2022 3:22 PM EDT 08/26/2022 3:22 PM EDT Narrative [facility] - 09/01/2022 9:59 PM EDT FASTING:UNKNOWN FASTING: UNKNOWN Cl Peguero MD LAB BLOOD ORDERABLES Final Resul t [facility] [address], [place] [address] [facility] [place] [facility] [address] [place] [phone] from Last 3 Months or Most Recently Relevant to Health Maintenance Insurance Care Teams Medical Laboratory Manager Relationship Specialty Start Date End Date Tatyana Cuevas ANP [address] [place] [address] PCP - General Family Medicine 05/19/21
--- OUTSIDE RECORDS SUMMARY | 2025-05-17 14:26 | XMS_ITS | Encounter Summary ---
Author Organization [employer] Address [address] [facility] 7 [place] [address] Care Team Providers Care Content Development Specialist Name Role Phone Tatyana Cuevas Primary Care Provider [phone] Reason for Visit * Reason Onset Date Comments chart prep 05/14/2025 Encounter Details Date Type Department Care Team ([facility] st Contact Info) Description 05/14/2025 Telephone [facility] MEDICINE [address] [place], [place] [phone] Tatyana Cuevas ANP [address] [place], [place] [phone] chart prep Social History Tobacco Use Types Packs/Day Years [...] encounter Miscellaneous Notes * Telephone Encounter - Misa Walton [place] - 05/14/2025 1:54 PM EST Chart Prep Labs: done Images: not done Per Referrals. Per Shelly at [facility] , not in service [phone] not in service [phone] MB not set up unable to leave message. Please be advised that this was our 3rd and final attempt to contact/schedule the patient. No further attempts will be made to re Referrals: appointment pending GI appointment schedule for 06/10/2025 Vaccines due: Flu, Hep A, RSV, and Zoster Screenings: colonoscopy Overdue care gaps: None documented in this encounter Plan of Treatment Upcoming Encounters Date Type Department Care Team (Late st Contact Info) Description 07/02/2025 9:00 AM EST Office Visit [facility] MEDICINE [address] [place] [address] Cl Peguero MD [address] [place] [address] 09/24/2025 11:00 AM EDT Office Visit [facility] OPTOMETRY [address] [place] [address] Anahi Cuenca OD [address] [place] [address] documented as of this encounter Visit Diagnoses Not on filedocumented in this encounter Additional Health Concerns Assessment Noted Time PHQ-9 Depression Total Score: 12 025 11:50 AM EDT documented as of this encounter Care Teams Content Development Specialist Relationship Specialty Start Date End Date Tatyana Cuevas ANP [address] [place] [address] PCP - General Family Medicine 05/19/21 documented as of this encounter
[2025-05-17 14:57] LABS: MANUAL DIFF FLAG NO
[2025-05-17 15:01] LABS: Hematocrit 41.7 % (42.0-52.0); Hemoglobin 15.2 g/dl (14.0-18.0); Imm Gran Abs Auto 0.02 X10*3/uL (0.00-0.03); Imm Gran Pct Auto 0.4 % (0.0-0.4); Lymphocytes Absolute Auto 1.8 X10*3/uL (1.2-4.9); Mean Corpuscular HGB Conc 36.5 g/dl (31.0-36.0); Mean Corpuscular Hemoglobin 32.4 pg (27.0-33.0); Mean Corpuscular Volume 88.9 fL (80.0-98.0); NRBC Abs Auto 0.000 X10*3/uL (0.0-0.012); NRBC Pct Auto 0.0 /100WBC (0.0-0.2); Platelet Count 162 X10*3/uL (160-400); Red Blood Count 4.69 X10*6/uL (4.60-5.80); White Blood Count 5.3 X10*3/uL (4.8-10.8)
[2025-05-17 15:07] LABS: D Dimer High Sensitivity < 150 NG/ML
[2025-05-17 15:13] LABS: Alanine Aminotransferase 72 U/L (0-40); Albumin Level 4.6 g/dL (3.5-5.0); Alkaline Phosphatase 71 U/L (39-117); Anion Gap 14 (12-20); Aspartate Amino Transferase 51 U/L (5-37); Blood Urea Nitrogen 14 mg/dL (9-16); Calcium 9.5 mg/dL (8.4-10.2); Carbon Dioxide 26 mmol/L (22-29); Chloride 105 mmol/L (96-108); Creatinine Clr Calc Pharmacy 81.5; Estimated Glomerular Filt Rate > 60; Magnesium 1.6 mg/dL (1.6-2.6); Potassium 3.8 mmol/L (3.3-5.1); Sodium 141 mmol/L (135-145); Total Protein 8.3 g/dL (6.5-8.0)
[2025-05-17 15:20] LABS: Troponin-I High Sensitivity < 2.7 ng/L (<3.5-35.0)
[2025-05-17 15:37] LABS: NT Pro B Type Natriuretic Pept 135.9 pg/mL (<300)
[2025-05-17 17:36] LABS: Troponin-I High Sensitivity < 2.7 ng/L (<3.5-35.0)
[2025-05-17 18:40] VITALS: BP 148/80; PULSE 67; RESP 18; TEMP 36.7; O2SAT 98
== END 2025-05-17 18:41 | disposition home or self-care (01) ==
PROVIDERS: Emergency Provider Emergency Medicine; PCP Nurse Practitioner Primary Care
DX: R07.89 Other chest pain (principal); M72.2 Plantar fascial fibromatosis; R94.31 Abnormal electrocardiogram [ECG] [EKG]; M10.9 Gout, unspecified; I10 Essential (primary) hypertension
CPT/HCPCS: 36415; 71046; 80053; 83735; 83880; 84484; 85025; 85379; 93005; 99283; 99285

== ENCOUNTER → 2025-05-17 13:08 | Outpatient (BNV) | payer MEDICAID, SELFPAY | PROVIDERS: Emergency Provider Emergency Medicine; PCP Nurse Practitioner Primary Care; Visit Provider Internal Medicine Cardiovascular Disease | DX: I25.2 Old myocardial infarction (principal) | CPT/HCPCS: 93010 ==

== ENCOUNTER → 2025-05-17 14:13 | Outpatient (BNV) | payer MEDICAID, SELFPAY | PROVIDERS: Emergency Provider Emergency Medicine; PCP Nurse Practitioner Primary Care; Visit Provider Radiology Diagnostic Radiology | DX: R07.9 Chest pain, unspecified (principal) | CPT/HCPCS: 71046 ==